=== PATIENT | female | born 1960 | race Caucasian/White ===

== ENCOUNTER 2020-09-24 10:00 | Inpatient (IN) | payer OTHER, SELFPAY ==
[2020-09-24] VITALS (16 sets, daily range): BP systolic 92–159; BP diastolic 43–85; PULSE 78–123; RESP 16–27; TEMP 36.8–38.1; O2SAT 93–100; BMI 19.6; BMI 19.5
--- NOTE | 2020-09-24 10:30 | CT_ITS ---
INDICATION: LLQ pain EXAMINATION: CT Abdomen And Pelvis W/O Contrast Injection TECHNIQUE: Helically acquired images were obtained of the abdomen and pelvis without the use of IV contrast. A radiation dose optimization technique was used for this scan. Oral contrast: None. COMPARISON: None FINDINGS: Evaluation of the solid organs and vascular structures is limited without intravenous contrast. Visualized lung bases: Unremarkable Liver: Multiple calcified granulomas. Gallbladder: Sludge within the gallbladder. Spleen: Multiple calcified granulomas. Pancreas: Unremarkable Adrenal Glands: Unremarkable Kidneys: Unremarkable Vasculature: Moderate aortoiliac atherosclerotic calcifications. GI Tract: Scattered colonic diverticula. There is a short segment of distal sigmoid colon demonstrating wall thickening and surrounding mesenteric fat stranding. There is also a small focus of intraperitoneal air adjacent to this inflamed portion of the colon (image 99, series 2). No focal fluid collection. Lymphadenopathy: None Peritoneum: No ascites. Bladder: Unremarkable Reproductive organs: Unremarkable Bones/Soft tissues: No suspicious osseous or soft tissue lesions CT/Abdomen/Pelvis without Cont IMPRESSION: Acute sigmoid diverticulitis with contained perforation. No focal fluid collection. Electronically Signed: Diego Valdes MD at 11:25 EDT Tel , Service support ,
[2020-09-24] MEDS: 0.9% Normal Saline 1,000 ML 1000 ML IV (10:47)
[2020-09-24] MEDS: Morphine 4 MG/ML Syringe IV ×2 (10:47→12:15)
[2020-09-24 10:48] LABS: Absolute Lymphocyte Count 0.84 X10^3/uL (0.83-4.51); Absolute Neutrophil Count 19.9 X10^3/uL (2.0-7.7); Basophil# 0.02 X10^3/uL; Basophil% 0.1 % (0-1); Eosinophil# 0.04 X10^3/uL; Eosinophils% 0.2 % (0-5); Hematocrit 39.9 % (37-47); Hemoglobin 13.1 g/dL (12.0-15.0); Lymphocyte # 0.84 X10^3/ul (0.83-4.51); Lymphocyte % 3.7 % (19-41); Mean Corp Hgb Conc 32.8 g/dL (32-36); Mean Corpuscular Hgb 29.2 pg (27.0-32.0); Mean Corpuscular Volume 89.1 fL (81-99); Mean Platelet Vol. 8.5 fl (6.2-12.0); Monocyte# 2.06 X10^3/uL; NRBC Flagged by Analyzer 0 % (0-5); Neutrophil # 19.87 X10^3/uL (2.7-7.7); Neutrophil % 86.4 % (47-70); POSITIVE DIFFERENTIAL YES; Platelet Count 381 K/mm3 (150-450); RBC Distribution Width CV 12.3 % (11.6-14.6); RBC Distribution Width SD 40.3 fl (35.1-43.9); Red Blood Count 4.48 M/mm3 (4.2-5.4)
[2020-09-24 10:49] LABS: Differential Indicated SCAN CRITERIA MET
[2020-09-24] MEDS: Ondansetron 4 MG/2 ML Vial IV (10:52)
[2020-09-24 10:58] LABS: Bacteria 0 SEEN /hpf (None Seen); Mucous, Urine 0 SEEN /hpf (<or=2+)
[2020-09-24 11:01] LABS: Color, Urine Yellow (Yellow); Glucose, Dipstick Normal (Normal); Leukocyte Esterase-Dipstick Negative /ul (Negative); Nitrite-Dipstick Negative (Negative); Occult Blood-Urine 250 /ul (Negative); Protein-Dipstick 100 mg/dl (Negative); Urine Bilirubin Dipstick Negative (Negative); Urine Clarity Clear (Clear); Urine Urobilinogen Normal (Normal)
[2020-09-24 11:01] LABS: ALB/GLOB Ratio 0.7 RATIO (0.9-2.4); AST(SGOT) 10 U/L (15-37); Alanine Aminotransfer ALT/SGPT 12 U/L (13-56); Albumin, Serum 3.2 g/dL (3.2-5.0); Alkaline Phosphatase 121 U/L (45-117); Anion Gap 8 (5-15); BUN 17 mg/dL (7-18); BUN/Creat Ratio 26.4 RATIO (10-20); Calcium,Total 9.4 mg/dL (8.5-10.1); Chloride 95 mmol/L (98-107); Creatinine, Serum 0.64 mg/dL (0.55-1.02); EST Glomerular Filtration Rate 99 mL/min (>60); Est Glom Filt Rate - Afr Amer 120 mL/min (>60); Globulin 4.3 g/dL (2.2-4.2); Glucose 134 mg/dL (74-106); Lipase 52 U/L (73-393); Potassium 3.2 mmol/L (3.5-5.1); Protein, Total 7.5 g/dL (6.4-8.2); Sodium Level 131 mmol/L (136-145)
[2020-09-24 11:07] LABS: Differential Comment SCANNED
[2020-09-24 11:13] LABS: Ketone-Dipstick 150 mg/dl (Negative)
[2020-09-24 11:14] LABS: Amorphous Sediment 1+; Red Blood Cells-Urine 10-25 SEEN /hpf (0-5); Squamous Epithelial Cells - UA 0-5 SEEN /hpf (5-10); White Blood Cells 0-5 SEEN /hpf (0-5)
[2020-09-24] MEDS: 0.9% Normal Saline 1,000 ML 999 ML IV (12:08)
[2020-09-24] MEDS: metroNIDAZOLE 500 MG/100 ML BAG 100 MG IV ×2 (12:08→22:13)
[2020-09-24 12:34] LABS: Lactic Acid 2.3 mmol/L (0.4-1.9)
--- NOTE | 2020-09-24 12:50 | ED.DCSUM_ITS ---
- ER Visit Summary Date of Service: 09/24/20 Chief Complaint: Abdominal pain History of Present Illness: The patient is a [address] Newton. She reports that she has left lower quadrant abdominal pain began 4 days ago. Is gradually gotten worse. It is a sharp, burning pain. Started worsening to 10 currently. Is worsened by movement and standing. Is relieved by nothing. Reports has been nausea and vomiting approximate 3 times a day. No blood in her emesis. She had loose stools, but no diarrhea. No blood in her stools or black tarry stools. Patient had dysuria. No frequency. She had subjective fever and chills. Physical Examination: Vitals: 98.3, 119/74, 123, 22, 90% on room air which is not hypoxic. General: Well-nourished and well-developed. Head: Normocephalic atraumatic. Neck: Supple, no lymphadenopathy. No JVD. Nontender. Cardiovascular: Tachycardic regular rhythm. No murmurs. Respiratory: No respiratory distress. Clear to auscultation bilaterally. Abdominal: Soft, moderate left lower quadrant tenderness to palpation, nondistended, normal bowel sounds. No guarding, rebound, or peritoneal signs. Rectal: Large perianal skin tag. Back: Nontender. Extremities: Nontender, no edema. Skin: Normal color, no rash. Neurologic: Alert and oriented ?3. Cranial nerves II through XII are intact. Normal strength and sensation. Psych: Normal affect. Test Results: CBC shows white count of 23.0 with 86 segs neutrophils and 4 l ymphocytes. Chem-7 shows a sodium 131, potassium 3.2, chloride 95, glucose 134. LFTs showed alk phos of 121, ALT of 12, AST of 10, lipase is 52. UA shows 10- 25 red blood cells. Lactic acid is 2.3. Clinical Impression(s) from Imaging Studies Abdomen/Pelvis CT 09/24/20 10:30 IMPRESSION: Acute sigmoid diverticulitis with contained perforation. No focal fluid collection. Electronically Signed: Diego Valdes MD at 11:25 EDT Tel , Service support , Emergency Department Course and Treatment: Patient was given morphine and Zofran IV. She was given 2 L of normal saline which is more than a 30 cc/kg bolus. She is allergic to penicillin. She was given Cipro and Flagyl IV. She is resting more comfortably. Treatment Plan: Patient was discussed with Dr. Sanchez. She also we discussed the hospitalist and admitted to the hospital for further evaluation and treatment. Disposition: Admitted in improved condition. Impression: 1. Sigmoid diverticulitis with microperforation. 2. Sepsis. 3. Perianal skin tag. This note was generated with Greasebookation software. It may contain incorrect words, spelling, and punctuation that were not noted in review of the chart prior to signing ED Disposition - Plan for ED Patient: Referrals: Lynda Palma MD [Primary Care Provider] -
--- NOTE | 2020-09-24 13:12 | PCM.HP.STD ---
History of Present Illness Date of Admission: 09/24/20 Chief Complaint: Abdominal pain and nausea The patient is a 60 year old F PMH as below who presents to the hospital with abdominal pain and nausea. She says that the pain is mostly in her left lower quadrant that started by 4 to 5 days ago. It has gradually gotten worse and that the symptoms are persistent but intermittent in intensity. She does have worsening pain with movement and does not get better with anything that she is aware of. In the ER she was found to have a white count of 23 though she is afebrile but she is tachycardic and was tachypneic but with those markers she is septic. Lactic acid is 2.3 making her severe sepsis and she had a CT scan of her abdomen pelvis which showed a contained perforation in her sigmoid colon consistent with sigmoid diverticulitis. This was discussed with surgery by the ED physician who felt that it was nonoperative case and should be admitted by medicine. Past Medical History Allergies Penicillins [PCN] Adverse Reaction (Verified 09/24/20 10:02) Hives Home Medications: Ambulatory Orders Medication Instructions Recorded NK 09/24/20 Surgical History: tonsillectomy Smoking Status: Current some day smoker Tobacco Use: Cigarettes Alcohol: None Drugs: None - *Family History Maternal History Items: Diabetes, Heart Disease Paternal History Items: Heart Disease, Hypertension Review of Systems Constitutional: Reports: Chills, Fever. Denies: Weight Change HEENT: Denies: Head Aches, Sinus Congestion, Sinus Drainage Cardiovascular: Denies: Chest Pain, Palpitations Respiratory: Denies: Cough, Shortness of breath at rest, Sputum production Gastrointestinal: Reports: Abdominal Pain. Denies: Nausea, Vomiting Genitourinary: Denies: Dysuria Musculoskeletal: Denies: Joint Pain, Joint Tenderness Skin: Denies: Rash, Wounds Neurological: Denies: Numbness, Tingling, Focal weakness Psychiatric: Denies: Anxiety, Depression Hematologic/ Lymphatic: Denies: Easy Bruising, Easy Bleeding VTE Information - Inpt Only VTE Present on Admission: No Patient Problems: Active and Suspected Problems Perforation of sigmoid colon due to diverticulitis (Acute) - Physical Exam Vitals/I&O's: Vital Signs Temp Pulse Resp BP Pulse Ox 98.3 F 110 H 18 148/84 H 93 09/24/20 10:02 09/24/20 11:47 09/24/20 11:47 09/24/20 11:47 09/24/20 11:47 Oxygen Delivery Method Room Air Weight: 118 lb Body Mass Index (BMI) 19.6 Intake and Output for Last 24 Hours 09/22/20 09/23/20 09/24/20 23:59 23:59 23:59 Intake Total 1000 / 1000 Balance 1000 / 1000 General: Alert, Oriented x3, Cooperative, No apparent distress HEENT: Atraumatic, PERRLA, EOMI, Normocephalic Oral: Dry Mucosa Neck: Supple, No JVD Lungs: Clear to auscultation, Normal air movement, No rhonchi, No wheeze, No rales, Tachypneic Cardiovascular: Regular Rhythm, Normal S1, Normal S2, No murmurs, Tachycardic Abdomen: Soft, Non-Distended, No Hepato-splenomegaly, Tender - Left lower quadrant Extremities: No edema, Capillary Refill Less than 3 Seconds Skin: No rashes, No breakdown Neurological: Neuro grossly intact, Sensory exam intact to light touch and pain Psych/Mental Status: Normal Affect, Appropriate Laboratory Results 09/24/20 10:33: WBC 23.0 H, RBC 4.48, Hgb 13.1, Hct 39.9, MCV 89.1, MCH 29.2, MCHC 32.8, RDW Std Deviation 40.3, RDW Coeff of Dion 12.3, Plt Count 381, MPV 8.5, Immature Gran % (Auto) 0.600, Neut % (Auto) 86.4 H, Lymph % (Auto) 3.7 L, [place] % (Auto) 9.0, Eos % (Auto) 0.2, Baso % (Auto) 0.1, Absolute Neuts (auto) 19.9 H, Absolute Lymphs (auto) 0.84, Nucleated RBC % 0, Differential Comment SCANNED, Diff Path Review October foll 09/24/20 10:33: Sodium 131 L, Potassium 3.2 L, Chloride 95 L, Carbon Dioxide 28.0, Anion Gap 8, BUN 17, Creatinine 0.64, Estim Creat Clear Calc 78.00, Est GFR (MDRD) Af Amer 120, Est GFR (MDRD) Non-Af 99, BUN/Creatinine Ratio 26.4 H, Glucose 134 H, Calcium 9.4, Total Bilirubin 0.50, AST 10 L, ALT 12 L, Alkaline Phosphatase 121 H, Total Protein 7.5, Albumin 3.2, Globulin 4.3 H, Albumin/Globulin Ratio 0.7 L, Lipase 52 L 09/24/20 10:50: Urine Color Yellow, Urine Clarity Clear, Urine pH 6.0, Ur Specific [place] 1.020, Urine Protein 100 H, Urine Glucose (UA) Normal, Urine Ketones 150 H, Urine Occult Blood 250 H, Urine Nitrite Negative, Urine Bilirubin Negative, Urine Urobilinogen Normal, Ur Leukocyte Esterase Negative, Urine RBC 10-25 SEEN, Urine WBC 0-5 SEEN, Ur Squamous Epith Cells 0-5 SEEN, Amorphous Sediment 1+, Urine Bacteria 0 SEEN, Urine Mucus 0 SEEN 09/24/20 11:50: Lactic Acid 2.3 H* Assessment/Plan All Active Problems Perforation of sigmoid colon due to diverticulitis (Acute) 1. Severe sepsis secondary to acute sigmoid diverticulitis with contained microperforation -She received sepsis fluids in the ER and will be started on Cipro and Flagyl -We will make her n.p.o. and continue with IV fluids -As she is stable, there does not appear a need at this time to consult the gauger chief delivery -She states that she had an episode of diverticulitis when she was 17 years old and therefore since that time has modified her diet significantly -Surgery has been consulted to assist in management for possible surgical intervention if she worsens DVT: Lovenox Inpatient E&M: 25044 Init Hosp L3
[2020-09-24] MEDS: Ciprofloxacin 400 MG/200 ML BAG 200 MG IV ×2 (13:18→21:15)
--- NOTE | 2020-09-24 13:31 | ED.RN ---
report given to fausto omalley
--- NOTE | 2020-09-24 13:43 | CON.PCM_ITS ---
Problem List (1) Perforation of sigmoid colon due to diverticulitis Status: Acute Reason for Consult Date of Consultation: 09/24/20 History of Present Illness: The patient is a 60 year old F PMH as below who presents to the hospital with abdominal pain and nausea. She says that the pain is mostly in her left lower quadrant that started by 4 to 5 days ago. It has gradually gotten worse and that the symptoms are persistent but intermittent in intensity. She does have worsening pain with movement and does not get better with anything that she is aware of. In the ER she was found to have a white count of 23 though she is afebrile but she is tachycardic and was tachypneic but with those markers she is septic. Lactic acid is 2.3 making her severe sepsis and she had a CT scan of her abdomen pelvis which showed a contained perforation in her sigmoid colon consistent with sigmoid diverticulitis. This was discussed with surgery by the ED physician who felt that it was nonoperative case and should be admitted by medicine. Past Medical History Allergies Penicillins [PCN] Adverse Reaction (Verified 09/24/20 10:02) Hives Home Medications: Ambulatory Orders Medication Instructions Recorded NK 09/24/20 Surgical History: no surgical history Smoking Status: Current some day smoker Tobacco Use: Cigarettes - *Family History Maternal History Items: No pertinent history Review of Systems Respiratory: Denies: Cough, Hemoptysis, Shortness of breath at rest, Shortness of breath upon exertion, Wheezing Gastrointestinal: Reports: Abdominal Pain, Constipation Genitourinary: Denies: Dysuria, Frequency, Hematuria, Urgency Patient Problems: Active and Suspected Problems Perforation of sigmoid colon due to diverticulitis (Acute) - Physical Exam Vitals/I&O's: Vital Signs Temp Pulse Resp BP Pulse Ox 99.7 F H 100 20 H 146/82 H 97 09/24/20 13:13 09/24/20 13:13 09/24/20 13:13 09/24/20 13:13 09/24/20 13:13 Oxygen Delivery Method Room Air Weight: 118 lb Body Mass Index (BMI) 19.6 Intake and Output for Last 24 Hours 09/22/20 09/23/20 09/24/20 23:59 23:59 23:59 Intake Total 1100 / 1100 Balance 1100 / 1100 General: Alert, Oriented x3 Lungs: Clear to auscultation Cardiovascular: Regular rate, Regular Rhythm, No murmurs Abdomen: Tender - Tenderness is mostly in the suprapubic and left lower quadrant area rest of the abdomen is soft. She is noted to have a fairly large anal skin tag probably about 2 cm in greatest diameter. Laboratory Results 09/24/20 10:33: WBC 23.0 H, RBC 4.48, Hgb 13.1, Hct 39.9, MCV 89.1, MCH 29.2, MCHC 32.8, RDW Std Deviation 40.3, RDW Coeff of Dion 12.3, Plt Count 381, MPV 8.5, Immature Gran % (Auto) 0.600, Neut % (Auto) 86.4 H, Lymph % (Auto) 3.7 L, [place] % (Auto) 9.0, Eos % (Auto) 0.2, Baso % (Auto) 0.1, Absolute Neuts (auto) 19.9 H, Absolute Lymphs (auto) 0.84, Nucleated RBC % 0, Differential Comment SCANNED, Diff Path Review October foll 09/24/20 10:33: Sodium 131 L, Potassium 3.2 L, Chloride 95 L, Carbon Dioxide 28.0, Anion Gap 8, BUN 17, Creatinine 0.64, Estim Creat Clear Calc 78.00, Est GFR (MDRD) Af Amer 120, Est GFR (MDRD) Non-Af 99, BUN/Creatinine Ratio 26.4 H, Glucose 134 H, Calcium 9.4, Total Bilirubin 0.50, AST 10 L, ALT 12 L, Alkaline Phosphatase 121 H, Total Protein 7.5, Albumin 3.2, Globulin 4.3 H, Albumin/Globulin Ratio 0.7 L, Lipase 52 L 09/24/20 10:50: Urine Color Yellow, Urine Clarity Clear, Urine pH 6.0, Ur Spe cific [place] 1.020, Urine Protein 100 H, Urine Glucose (UA) Normal, Urine Ketones 150 H, Urine Occult Blood 250 H, Urine Nitrite Negative, Urine Bilirubin Negative, Urine Urobilinogen Normal, Ur Leukocyte Esterase Negative, Urine RBC 10-25 SEEN, Urine WBC 0-5 SEEN, Ur Squamous Epith Cells 0-5 SEEN, Amorphous Sediment 1+, Urine Bacteria 0 SEEN, Urine Mucus 0 SEEN 09/24/20 11:50: Lactic Acid 2.3 H* Assessment/Plan All Active Problems Perforation of sigmoid colon due to diverticulitis (Acute) Patient will be amended to the intensive care unit. She is currently getting IV antibiotics. She will remain n.p.o. Hopefully we will see some significant improvement within the next 24 hours. I have talked to her about possibly needing to have a surgery with removal of the sigmoid colon and possibly creating a end colostomy she is aware of this and has had diverticulitis as a teenager. She has never had a colonoscopy.
[2020-09-24] MEDS: Acetaminophen 325 MG Tablet 650 MG PO (14:51)
[2020-09-24] MEDS: 0.9% Normal Saline 1,000 ML 100 ML IV (15:19)
[2020-09-24 15:56] LABS: Reflex Lactate? Y
[2020-09-24 16:49] LABS: Lactic Acid 0.8 mmol/L (0.4-1.9)
[2020-09-24] MEDS: Potassium Chloride Oral Tablet 20 MEQ 40 MEQ PO (18:21)
[2020-09-24] MEDS: Morphine 2 MG/ML Syringe IV ×2 (18:24→22:13)
[2020-09-24] MEDS: 0.9% Saline Lock 10 ML Syringe IV ×2 (21:15→22:13)
[2020-09-25] VITALS (30 sets, daily range): BP systolic 89–157; BP diastolic 52–119; PULSE 76–110; RESP 13–24; TEMP 36.5–37.2; O2SAT 93–100; BMI 19.7
--- NOTE | 2020-09-25 | COLBX_PTH ---
PATIENT: BILLIE SAVAGE LOC: [facility] U#:[id number] AGE/SX: 60/F ROOM: [facility] RE09/24/[address]: Dr. Adi Yang MD : 1960 BED: 1 DIS: 10/01/2020 SPEC #: [id number] RECD: 09/25/20 11:34 STATUS: HAYLEE REDeyvi #: [id number] SINAN: 09/25/20 00:[address]: Alfonzo Sanchez DEPT: SURGICAL PATHOLOGY RECD BY: Cheyenne Noguera ENTERED: 09/25/20 12:01 SP TYPE: COLON BX OTHR DR: MD Dr. Beni Louise MD Dr. Prakash Chand, MD Tissues: A - Sigmoid colon biopsy B - Skin of anus Procedures: Frozen Section (charge) Frozen Section Add'l ([facility]) Surgery Specimen Level IV Surgery Specimen Level HEADER OPERATION: Laparoscopic sigmoid colectomy with end colostomy and excision PRE-OP DIAGNOSIS: Perforation of sigmoid colon due to diverticulitis TISSUE SUBMITTED: A - Sigmoid colon, frozen section, B - Anal skin tag FROZEN SECTION DIAGNOSIS A. 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 AM:rena 09/25/2020 Case has been reviewed in consultation with Dr. Sarah who concurs with the above diagnosis. IDC:SJ MICROSCOPIC DIAGNOSIS A. Sigmoid colon, colectomy: Invasive well, moderate and poorly differentiated adenocarcinoma with focal mucinous features. See cancer summary in the comment section. B. Anal skin tag: Consistent with condyloma. :rena 09/27/2020 COMMENT COLON CANCER SUMMARY Procedure: Sigmoidectomy Tumor site: Sigmoid colon Tumor size: Cannot be estimated. No gross lesion is identified. Macroscopic tumor perforation: Present Histologic type: Adenocarcinoma Histologic grade: Grade 1-3 (well, moderately and poorly differentiated) Tumor extension: Tumor invades visceral peritoneum Margins: One axial margin and circumferential resection margin are positive for invasive carcinoma. Treatment effect: No known presurgical therapy. Lymphvascular invasion: Not identified Perineural invasion: present Type of polyp in which invasive carcinoma arose: None identified Tumor deposits: Not identified Regional lymph nodes: Number of lymph nodes examined: 20 Number of lymph nodes involved: 3 Ancillary studies: Please refer to IHC ([id number]) for mismatch protein or microsatellite instability. Additional pathologic findings: Diverticulosis and diverticulitis PATHOLOGIC STAGE: pT4a pN1b Mx The above summary is in compliance with [employer] [place] [employer] (CAP) Cancer Protocols Checklist and [place] Joint Committee on Cancer (AJCC), Staging Manual, 8th Ed. The tumor appears to arise in the diverticulum. The largest focus of lymph node metastasis measures 0.3 cm in greatest dimension. Extranodal extension is not seen. Case has been reviewed in consultation with Dr. Beltran who concurs with the above diagnosis. IDC:AM MICROSCOPIC DESCRIPTION Slides are reviewed. GROSS DESCRIPTION A - Received fresh for frozen section consultation labeled with the patient's name is a specimen designated sigmoid colon. The specimen consists of a segment of colon measuring 10 cm in length and is surrounded by dense, fibrofatty tissue. One end contains a staple. An area of perforation is noted adjacent to the opposite end measuring 0.9 cm. Serosal surface surrounding the peroration show induration. Also present free in the container is a separate fragment of pink-rowan soft tissue measuring 1.5 x 1 x 0.5 cm. The serosal surface of the segment of bowel is inked in area of serosal induration. [employer] sections are submitted for frozen section consultation in two blocks, 1 - area of perforation, 2 - separately received piece of tissue. The gross reviewed with the surgeon in person. The mucosa is pink-rowan in color. No distinct mucosal mass lesions are identified. Serial sections also reveal several diverticula that appear to be ruptured in the area of perforation. Multiple non-ruptured diverticula are also noted. The attached fibrofatty tissue contains several nodules resembling lymph nodes. Additional account maintenance representative sections are submitted as follows: 3 - stapled mucosal margin, 4 - opposite margin, 5 & 6 - area of perforation, 7-9 - area of perforation and adjacent soft tissue, 10 & 11 - non-ruptured diverticula, 12 - one lymph node, bisected, 13-17 - multiple lymph nodes in each cassette. / AM:rena 09/26/2020 B - Received in fixative is one container labeled with the patient's name and designated anal skin tag. The specimen consists of a polypoid fragment of rowan tissue measuring 2 x 1.7 x 0.8 cm. The specimen is serially sectioned and totally submitted in one cassette. / AM:rena 09/26/2020 TC:0 CPT: 22384, 78201, 68917, 37813
--- NOTE | 2020-09-25 | IMM_PTH ---
PATIENT: BILLIE SAVAGE LOC: [facility] U#:[id number] AGE/SX: 60/F ROOM: [facility] RE09/24/[address]: Dr. Adi Yang MD : 1960 BED: 1 DIS: 10/01/2020 SPEC #: [id number] RECD: 09/27/20 12:31 STATUS: SOUNeil REQ #: [id number] SINAN: 09/25/20 00:[address]: Alfonzo Sanchez DEPT: IMMUNOHISTOCHEMISTRY RECD BY: Cheyenne Noguera ENTERED: 09/27/20 12:32 SP TYPE: IMMUNO OTHR DR: MD Dr. Alfonzo Louise MD Dr. Nicholas F Kotsonis, MD Dr. Prakash Chand, MD Tyra Schlabach, TOE CLOSING MACHINE TENDER-C Tissues: A - Sigmoid colon biopsy Procedures: P53 (initial) MSH2 (add) MLH-1 (add) MSH6 (add) Anti-PMS2 (add) BARNHART-2 (add) KI-67 (add) HER-2-STEPHON (initial) Comments: @ Ordering doctor for HER2 edited from to @ by TAHIR at 09/27/20 1232 @ Ordering doctor for P53 edited from to @ by TAHIR at 09/27/20 1232 @ Ordering doctor for MSH2. edited from to @ by TAHIR at 09/27/20 1232 @ Ordering doctor for MLH1. edited from to DR.DPEABO Ernst by TAHIR at 09/27/20 1232 @ Ordering doctor for MSH6. edited from to @ by TAHIR at 09/27/20 1232 @ Ordering doctor for PMS2. edited from to DR.DPEABO Ernst by TAHIR at 09/27/20 1232 @ Ordering doctor for BARNHART-2. edited from to DR.DPEABO Ernst by TAHIR at 09/27/20 123 @ Ordering doctor for KI67. edited from to DR.DPEABO Ernst by TAHIR at 09/27/20 1232 @ Submitting doctor edited from to DR.DPEABO Ernst by RGOOD at 09/27/20 1232 PHYSICIAN & [place] [id number] SPECIMEN INFORMATION: Tissue Source: A - Sigmoid colon Clinical Info: Perforation of sigmoid colon due to diverticulitis Specimen Number: [id number] CPT code: 51234, 90624 x7 METHODOLOGY: Deparaffinized sections of prefer/formalin-fixed tissue or PAP/DQ stained slides are incubated with monoclonal/polyclonal antibodies/oligonucleotide probes. Localization is made via biotin free immunoperoxidase method. Appropriate controls are performed and reacted as expected. Results on target cell population are indicated in the following table: RESULTS: ANTIBODY / CLONE RESULT Block A5 Ki-67 (30-9) positive, high P53 (DO-7) positive BARNHART-2 (SP21) positive MLH-1 (M1) positive MSH2 (25D12) positive MSH6 (44) positive PMS2 (BIQ1123) positive Her-2neu (CB11) negative (0) These tests were developed and their performance characteristics determined by [facility]. They may not have been cleared or approved by the U.S. Food and Drug Administration. The FDA has determined that such clearance or approval is not necessary. The above immunohistochemical/dualISH markers are ordered and reviewed by the Pathologist. INTERPRETATION: A. Sigmoid colon, biopsy: Invasive adenocarcinoma. Result of Microsatellite Instability Study: Negative (no loss of mismatch protein; no microsatellite instability detected). SJ:rena 09/28/2020
[2020-09-25] MEDS: 0.9% Normal Saline 1,000 ML 100 ML IV ×4 (00:15→23:16)
[2020-09-25] MEDS: 0.9% Saline Lock 10 ML Syringe IV ×3 (02:33→06:13)
[2020-09-25] MEDS: Morphine 2 MG/ML Syringe IV ×2 (02:33→06:13)
[2020-09-25 03:50] LABS: Absolute Lymphocyte Count 1.29 X10^3/uL (0.83-4.51); Absolute Neutrophil Count 13.3 X10^3/uL (2.0-7.7); Basophil# 0.03 X10^3/uL; Basophil% 0.2 % (0-1); Differential Indicated SCAN CRITERIA MET; Eosinophil# 0.03 X10^3/uL; Eosinophils% 0.2 % (0-5); Hematocrit 29.9 % (37-47); Hemoglobin 9.7 g/dL (12.0-15.0); Lymphocyte # 1.29 X10^3/ul (0.83-4.51); Lymphocyte % 7.8 % (19-41); Mean Corp Hgb Conc 32.4 g/dL (32-36); Mean Corpuscular Hgb 30.1 pg (27.0-32.0); Mean Corpuscular Volume 92.9 fL (81-99); Mean Platelet Vol. 8.8 fl (6.2-12.0); Monocyte# 1.74 X10^3/uL; Monocyte% 10.6 % (0-10); NRBC Flagged by Analyzer 0 % (0-5); Neutrophil # 13.28 X10^3/uL (2.7-7.7); Neutrophil % 80.7 % (47-70); POSITIVE DIFFERENTIAL YES; Platelet Count 294 K/mm3 (150-450); RBC Distribution Width CV 12.7 % (11.6-14.6); RBC Distribution Width SD 43.4 fl (35.1-43.9); Red Blood Count 3.22 M/mm3 (4.2-5.4); White Blood Count 16.5 K/mm3 (4.4-11.0)
[2020-09-25 04:43] LABS: Anion Gap 7 (5-15); BUN 13 mg/dL (7-18); BUN/Creat Ratio 31.4 RATIO (10-20); Calcium,Total 8.2 mg/dL (8.5-10.1); Chloride 109 mmol/L (98-107); Creatinine, Serum 0.41 mg/dL (0.55-1.02); EST Glomerular Filtration Rate 166 mL/min (>60); Est Glom Filt Rate - Afr Amer 200 mL/min (>60); Estimated Creatinine Clearance 125.34 ml/min; Glucose 95 mg/dL (74-106); Potassium 3.8 mmol/L (3.5-5.1); Sodium Level 139 mmol/L (136-145)
--- NOTE | 2020-09-25 05:11 | RAD_ITS ---
HISTORY: abdominal pain EXAM: KUB COMPARISON: CT scan of the abdomen and pelvis from yesterday morning FINDINGS: # of images incl. paperwork: 1 The contained perforation within the pelvis from the acute diverticulitis is not identified on the x-ray No free air is perceived. No dilated or loops of bowel are seen. There is no mass or suspicious calcification. No evidence of obstruction. RAD/Abdomen Single View (Portable) IMPRESSION: No acute disease perceived. at 0623 Reported and signed by: Rancho Grider MD Electronically Signed: Rancho Grider MD at 6:22 EDT Tel , Service support ,
[2020-09-25] MEDS: metroNIDAZOLE 500 MG/100 ML BAG 100 MG IV ×3 (05:17→22:16)
--- NOTE | 2020-09-25 05:20 | PN_ITS ---
Progress Note Patient with acute diverticulitis and with contained perforation. Nurse report that patient with increased abdominal pain. Hemoglobin has dropped from 13.1- 9.7 Patient was examined at bedside. Patient complains of abdominal pain that has worsened. Patient is still hypotensive. Patient is not tachycardic Patient alert and oriented x3 abdomen very tender to touch; nondistended. Type and screen for 2 units of blood without transfusion. Trend H&H Get stat KUB. Discussed with general surgeon. STROKE Vital Signs/Narrative: Vital Signs Temp Pulse Resp BP Pulse Ox 09/25/20 04:00 98.8 F 76 20 H 123/58 H 98 09/25/20 03:00 82 19 H 133/69 H 100 09/25/20 02:00 76 17 119/57 L 100
--- NOTE | 2020-09-25 06:48 | PN.SURG_ITS ---
Patient Problems: Active and Suspected Problems Perforation of sigmoid colon due to diverticulitis (Acute) Subjective: Patient states that she feels significantly worse today. It hurts just for her to move in bed. Objective: More tender today with some voluntary guarding she has clear peritoneal signs on the left side. - Physical Exam Vitals/I&O's: Vital Signs Temp Pulse Resp BP Pulse Ox 98.8 F 110 H 21 H 121/65 H 94 09/25/20 04:00 09/25/20 06:00 09/25/20 06:00 09/25/20 06:00 09/25/20 06:00 Oxygen Flow Rate (L/min) 2 Oxygen Delivery Method Nasal Cannula Weight: 122 lb 9.232 oz Body Mass Index (BMI) 19.5 Intake and Output for Last 24 Hours 09/23/20 09/24/20 09/25/20 23:59 23:59 23:59 Intake Total 2660 / 2660 993.33 / 993.33 Output Total 700 / 700 0 / 0 Balance 1959 / 1959 993.33 / 993.33 Laboratory Results 09/24/20 10:33: WBC 23.0 H, RBC 4.48, Hgb 13.1, Hct 39.9, MCV 89.1, MCH 29.2, MCHC 32.8, RDW Std Deviation 40.3, RDW Coeff of Dion 12.3, Plt Count 381, MPV 8.5, Immature Gran % (Auto) 0.600, Neut % (Auto) 86.4 H, Lymph % (Auto) 3.7 L, Sharp % (Auto) 9.0, Eos % (Auto) 0.2, Baso % (Auto) 0.1, Absolute Neuts (auto) 19.9 H, Absolute Lymphs (auto) 0.84, Nucleated RBC % 0, Differential Comment SCANNED, Diff Path Review October09/24/20 10:33: Sodium 131 L, Potassium 3.2 L, Chloride 95 L, Carbon Dioxide 28.0, Anion Gap 8, BUN 17, Creatinine 0.64, Estim Creat Clear Calc 78.00, Est GFR (MDRD) Af Amer 120, Est GFR (MDRD) Non-Af 99, BUN/Creatinine Ratio 26.4 H, Glucose 134 H, Calcium 9.4, Total Bilirubin 0.50, AST 10 L, ALT 12 L, Alkaline Phosphatase 121 H, Total Protein 7.5, Albumin 3.2, Globulin 4.3 H, Albumin/Globulin Ratio 0.7 L, Lipase 52 L 09/24/20 10:50: Urine Color Yellow, Urine Clarity Clear, Urine pH 6.0, Ur Specific Homer 1.020, Urine Protein 100 H, Urine Glucose (UA) Normal, Urine Ketones 150 H, Urine Occult Blood 250 H, Urine Nitrite Negative, Urine Bilirubin Negative, Urine Urobilinogen Normal, Ur Leukocyte Esterase Negative, Urine RBC 10-25 SEEN, Urine WBC 0-5 SEEN, Ur Squamous Epith Cells 0-5 SEEN, Amorphous Sediment 1+, Urine Bacteria 0 SEEN, Urine Mucus 0 SEEN 09/24/20 11:50: Lactic Acid 2.3 H* 09/24/20 16:15: Lactic Acid 0.8 09/25/20 03:40: WBC 16.5 H, RBC 3.22 L, Hgb 9.7 L, Hct 29.9 L, MCV 92.9, MCH 30.1, MCHC 32.4, RDW Std Deviation 43.4, RDW Coeff of Dion 12.7, Plt Count 294, MPV 8.8, Immature Gran % (Auto) 0.500, Neut % (Auto) 80.7 H, Lymph % (Auto) 7.8 L, Sharp % (Auto) 10.6 H, Eos % (Auto) 0.2, Baso % (Auto) 0.2, Absolute Neuts (auto) 13.3 H, Absolute Lymphs (auto) 1.29, Nucleated RBC % 0, Diff Path Review October09/25/20 03:40: Sodium 139, Potassium 3.8, Chloride 109 H, Carbon Dioxide 23.0, Anion Gap 7, BUN 13, Creatinine 0.41 L, Estim Creat Clear Calc 125.34, Est GFR (MDRD) Af Amer 200, Est GFR (MDRD) Non-Af 166, BUN/Creatinine Ratio 31.4 H, Glucose 95, Calcium 8.2 L 09/25/20 05:10: Blood Type O POSITIVE, Antibody Screen NEGATIVE, Crossmatch See Detail Current Medications Acetaminophen (Acetaminophen 325 Mg Tablet) 650 mg PO Q6H PRN PRN PRN Reason: Pain Score 1-10/Temp > 100.7 F Last Admin: 09/24/20 14:51 Dose: 650 mg Documented by: Enoxaparin Sodium (Enoxaparin 40 Mg/0.4 Ml Syringe) 40 mg SC DAILY [facility] Sodium Chloride () 1,000 mls @ 100 mls/hr IV .Q10H [facility] Last Admin: 09/25/20 00:15 Dose: 100 mls/hr Documented by: Ciprofloxacin (Cipro) 400 mg in 200 mls @ 200 mls/hr IV Q12 [facility] Last Infusion: 09/24/20 22:16 Dose: Infused Documented by: Metronidazole (Flagyl) 500 mg in 100 mls @ 100 mls/hr IV Q8 [facility] Last Infusion: 09/25/20 06:24 Dose: Infused Documented by: Sodium Chloride () 250 mls @ 15 mls/hr IV .[id number] PRN PRN Reason: Saline Flush Sodium Chloride () 250 mls @ 15 mls/hr IV .[id number] PRN PRN Reason: Additional IVPB Infusion Morphine Sulfate (Morphine 2 Mg/Ml Syringe) 2 mg IV Q3H PRN PRN PRN Reason: Pain Score 6-10 Last Admin: 09/25/20 06:13 Dose: 2 mg Documented by: Ondansetron HCl (Ondansetron 4 Mg/2 Ml Vial) 4 mg IV Q8H PRN PRN PRN Reason: NAUSEA/VOMITING Sodium Chloride (0.9% Saline Lock 10 Ml Syringe) 10 - 40 ml IV UD PRN PRN Reason: SALINE FLUSH Last Admin: 09/25/20 06:13 Dose: 10 ml Documented by: Medical Necessity - Tobacco Use Smoking Status: Current some day smoker Tobacco Use: Cigarettes Assessment/Plan All Active Problems Perforation of sigmoid colon due to diverticulitis (Acute) At this point I do not think we have any choice but to take her to surgery. It would be highly unlikely that I am going to be able to do a primary anastomosis when I look at the CAT scan. I have discussed with her that probably the most likely surgery that I am going to be able to do is a sigmoid colectomy and end colostomy. Risk benefits of this procedure were reviewed with her in great detail and she is willing to proceed.
--- NOTE | 2020-09-25 07:01 | EKG12_ITS ---
Test Reason : PRE-OP Blood Pressure : / mmHG Vent. Rate : 087 BPM Atrial Rate : 087 BPM P-R Int : 148 ms QRS Dur : 070 ms QT Int : 364 ms P-R-T Axes : 070 028 009 degrees QTc Int : 438 ms Normal sinus rhythm Normal ECG Confirmed by HILDA KYLE, VIIVANA ([id number]), continuity editor AMBROSE BACK ([id number]) on 09/27/2020 1:22:27 PM Referred By: CAMILLE Confirmed By:VIVIANA STEVENS MD
--- NOTE | 2020-09-25 08:21 | PN_ITS ---
Patient Problems: Active and Suspected Problems Perforation of sigmoid colon due to diverticulitis (Acute) Objective: Patient has worsening of her abdominal pain yesterday night and was examined by nighttime hospitalist. Patient denies any major abdominal surgery in the past. She has normal exercise capacity prior to abdominal pain, can climb 2 flights of stairs no limitation on walking. She states sometimes she is sniffs cigarettes of her but usually does not smoke. Physical exam General: Alert, Oriented x3, Cooperative HEENT: Atraumatic, PERRLA, EOMI, Normocephalic Oral: No Gingival or Mucosal Lesions/ Ulcerations Neck: Supple, No JVD, Negative Carotid Bruits Lungs: Air entry diminished in bilateral lung bases. No crepitation/rhonchi Cardiovascular: Regular rate, Regular Rhythm, Normal S1, Normal S2, No murmurs Abdomen: Soft, tenderness present predominantly in left lower quadrant with rebound tenderness. Mild guarding. Bowel sounds present : No renal angle tenderness. No suprapubic tenderness. Extremities: No edema, Capillary Refill Less than 3 Seconds Skin: No rashes, No breakdown Musculoskeletal: No Tenderness to Palpation of Joints or Extremities Neurological: Cranial nerves II-XII grossly intact, Deep Tendon Reflexes 2+/4 and Symmetrical, Neuro grossly intact Psych/Mental Status: Normal Affect, Appropriate. Vitals/I&O's: Vital Signs Temp Pulse Resp BP Pulse Ox 98.2 F 88 17 111/57 L 96 09/25/20 08:12 09/25/20 08:12 09/25/20 08:12 09/25/20 08:12 09/25/20 08:12 Oxygen Flow Rate (L/min) 2 Oxygen Delivery Method Room Air Weight: 122 lb 9.232 oz Body Mass Index (BMI) 19.7 Intake and Output for Last 24 Hours 09/23/20 09/24/20 09/25/20 23:59 23:59 23:59 Intake Total 2660 / 2660 993.33 / 993.33 Output Total 700 / 700 0 / 0 Balance 1959 / 1959 993.33 / 993.33 Laboratory Results 09/24/20 10:33: WBC 23.0 H, RBC 4.48, Hgb 13.1, Hct 39.9, MCV 89.1, MCH 29.2, MCHC 32.8, RDW Std Deviation 40.3, RDW Coeff of Dion 12.3, Plt Count 381, MPV 8.5, Immature Gran % (Auto) 0.600, Neut % (Auto) 86.4 H, Lymph % (Auto) 3.7 L, Norman % (Auto) 9.0, Eos % (Auto) 0.2, Baso % (Auto) 0.1, Absolute Neuts (auto) 19.9 H, Absolute Lymphs (auto) 0.84, Nucleated RBC % 0, Differential Comment SCANNED, Diff Path Review October foll 09/24/20 10:33: Sodium 131 L, Potassium 3.2 L, Chloride 95 L, Carbon Dioxide 28.0, Anion Gap 8, BUN 17, Creatinine 0.64, Estim Creat Clear Calc 78.00, Est GFR (MDRD) Af Amer 120, Est GFR (MDRD) Non-Af 99, BUN/Creatinine Ratio 26.4 H, Glucose 134 H, Calcium 9.4, Total Bilirubin 0.50, AST 10 L, ALT 12 L, Alkaline Phosphatase 121 H, Total Protein 7.5, Albumin 3.2, Globulin 4.3 H, Albumin/Globulin Ratio 0.7 L, Lipase 52 L 09/24/20 10:50: Urine Color Yellow, Urine Clarity Clear, Urine pH 6.0, Ur Specific Benge 1.020, Urine Protein 100 H, Urine Glucose (UA) Normal, Urine Ketones 150 H, Urine Occult Blood 250 H, Urine Nitrite Negative, Urine Bilirubin Negative, Urine Urobilinogen Normal, Ur Leukocyte Esterase Negative, Urine RBC 10-25 SEEN, Urine WBC 0-5 SEEN, Ur Squamous Epith Cells 0-5 SEEN, Amorphous Sediment 1+, Urine Bacteria 0 SEEN, Urine Mucus 0 SEEN 09/24/20 11:50: Lactic Acid 2.3 H* 09/24/20 16:15: Lactic Acid 0.8 09/25/20 03:40: WBC 16.5 H, RBC 3.22 L, Hgb 9.7 L, Hct 29.9 L, MCV 92.9, MCH 30.1, MCHC 32.4, RDW Std Deviation 43.4, RDW Coeff of Dion 12.7, Plt Count 294, MPV 8.8, Immature Gran % (Auto) 0.500, Neut % (Auto) 80.7 H, Lymph % (Auto) 7.8 L, Norman % (Auto) 10.6 H, Eos % (Auto) 0.2, Baso % (Auto) 0.2, Absolute Neuts (auto) 13.3 H, Absolute Lymphs (auto) 1.29, Nucleated RBC % 0, Diff Path Review October09/25/20 03:40: Sodium 139, Potassium 3.8, Chloride 109 H, Carbon Dioxide 23.0, Anion Gap 7, BUN 13, Creatinine 0.41 L, Estim Creat Clear Calc 125.34, Est GFR (MDRD) Af Amer 200, Est GFR (MDRD) Non-Af 166, BUN/Creatinine Ratio 31.4 H, Glucose 95, Calcium 8.2 L 09/25/20 05:10: Blood Type O POSITIVE, Antibody Screen NEGATIVE, Crossmatch See Detail 09/25/20 08:00: PT Pending, INR Pending, APTT Pending Current Medications Acetaminophen (Acetaminophen 325 Mg Tablet) 650 mg PO Q6H PRN PRN PRN Reason: Pain Score 1-10/Temp > 100.7 F Last Admin: 09/24/20 14:51 Dose: 650 mg Documented by: Enoxaparin Sodium (Enoxaparin 40 Mg/0.4 Ml Syringe) 40 mg SC DAILY [facility] Sodium Chloride () 1,000 mls @ 100 mls/hr IV .Q10H [facility] Last Admin: 09/25/20 00:15 Dose: 100 mls/hr Documented by: Ciprofloxacin (Cipro) 400 mg in 200 mls @ 200 mls/hr IV Q12 [facility] Last Infusion: 09/24/20 22:16 Dose: Infused Documented by: Metronidazole (Flagyl) 500 mg in 100 mls @ 100 mls/hr IV Q8 [facility] Last Infusion: 09/25/20 06:24 Dose: Infused Documented by: Sodium Chloride () 250 mls @ 15 mls/hr IV .[id number] PRN PRN Reason: Saline Flush Sodium Chloride () 250 mls @ 15 mls/hr IV .[id number] PRN PRN Reason: Additional IVPB Infusion Morphine Sulfate (Morphine 2 Mg/Ml Syringe) 2 mg IV Q3H PRN PRN PRN Reason: Pain Score 6-10 Last Admin: 09/25/20 06:13 Dose: 2 mg Documented by: Ondansetron HCl (Ondansetron 4 Mg/2 Ml Vial) 4 mg IV Q8H PRN PRN PRN Reason: NAUSEA/VOMITING Sodium Chloride (0.9% Saline Lock 10 Ml Syringe) 10 - 40 ml IV UD PRN PRN Reason: SALINE FLUSH Last Admin: 09/25/20 06:13 Dose: 10 ml Documented by: STROKE Vital Signs/Narrative: Vital Signs Temp Pulse Resp BP BP Pulse Ox 09/25/20 08:12 98.2 F 88 17 111/57 L 96 09/25/20 07:00 87 18 121/65 H 96 09/25/20 06:48 94 09/25/20 06:00 110 H 21 H 121/65 H 94 09/25/20 05:00 80 19 H 124/69 H 100 Medical Necessity - Tobacco Use Smoking Status: Current some day smoker Tobacco Use: Cigarettes Assessment/Plan All Active Problems Perforation of sigmoid colon due to diverticulitis (Acute) 1. Severe sepsis secondary to acute sigmoid diverticulitis with contained microperforation Mild fever 100.6 Fahrenheit about 3 PM on 09/24. On IV fluid. Cipro/Flagyl. Patient is going for surgery today. Discussed with Dr. Sanchez. Continue incentive spirometry. Patient has good preoperative functional capacity and is moderate risk for surgery. 2. Patient does not regularly follow with PCP probably last seen about 4 years ago. Mild protein calorie malnutrition. DVT: Lovenox Inpatient E&M: [id number] [facility] Hosp L3
[2020-09-25 08:36] LABS: International Normalized Ratio 1.3; Partial Thromboplast Time 23.8 Seconds (24.1-36.2); Prothrombin Time (Protime)PT. 15.7 SECONDS (11.7-14.9)
[2020-09-25] MEDS: Ciprofloxacin 400 MG/200 ML BAG 200 MG IV ×2 (09:23→22:16)
--- NOTE | 2020-09-25 09:30 | CASEMGMT ---
Patient is off unit and unable to complete assessment at this time.
--- NOTE | 2020-09-25 09:44 | NURSING ---
Was asked to shane abdomen for an end colostomy per Dr Sanchez. patient has a bowel perforation d/t diverticulitis. Pt is scheduled for a sigmoid colectomy with an end colostomy this am. abdomen is tender. patient was able to sit up in the bed and well as at the side of the bed to assess the contour of the abdomen. abdomen marked with a skin pen to the left lower abdomen. patient stated typically she wears skirts up above the umbilicus. made sure to shane area at least 3 fingerbreadths from the umbilicus. covered marking with an opsite. will continue ostomy teaching with patient post op. no further questions at this time.
--- NOTE | 2020-09-25 10:02 | CASEMGMT ---
Pt is off the floor for surgery. SW will speak w/pt when appropriate about self pay status and about completing LW/POA forms. SONAL Walsh
--- NOTE | 2020-09-25 10:59 | NURSING ---
0900: Report called to Brenda in PACU 0940: patient left unit to PACU
[2020-09-25] MEDS: BUPIVACAINE LIPOSOME/PF 20 ML VIAL OPERA.SITE (12:30)
[2020-09-25] MEDS: Bupivacaine 0.25% 30 ML Vial (12:30)
--- NOTE | 2020-09-25 12:54 | OP.PCM_ITS ---
Problem List (1) Perforation of sigmoid colon due to diverticulitis Status: Acute (2) Cancer of sigmoid colon metastatic to intra-abdominal lymph node Status: Acute Report of Operation Date of Procedure: 09/25/20 Pre-Operative Diagnosis: Perforated sigmoid diverticulitis Post-Operative Diagnosis: Perforated sigmoid colon cancer Surgery/Procedure Performed:: Sigmoid colectomy with end colostomy (Liz's procedure) Type of Anesthesia:: General Anesthesiologist: Gerald Reno Specimen's removed: Sigmoid colon Drains: 15 round Malcolm-Luke Estimated Blood Loss (mL): < 50 cc Fluids Replaced: 600 cc LR Description of Procedure: Patient was brought into the operating room. Placed in the supine position. Under excellent general endotracheal intubation legs were placed up in stirrups and a Dickerson catheter was placed. The abdomen and pelvis was then sterilely prepped and draped in the usual fashion. Local was injected supraumbilically and incision was made dissection was carried down to the fascia fascia was grasped a varies needle was placed inside the abdomen the abdomen was insufflated to 15 torr. A #5 trocar was placed. Right lower quadrant #5 trocar was placed under direct visualization and in between those 2 another #5 trocar was placed. I injected Exparel along the lateral and costal margins. I then placed the patient in headdown and rotated to the left I used the Enseal to mobilize the sigmoid colon as I was dissecting in between the mesentery I entered purulent material and I thought this was consistent with perforated sigmoid diverticulitis into the mesentery as it was described in the CAT scan. I made a determination that it was best that I not do any further dissection laparoscopically and so I made a midline incision and placed a wound protector in the patient. I put an 0 Vicryl suture into the uterus and clamped it so it was out of the way. I started to dissect the sigmoid colon free and came down to the sacrum in a pinpoint fashion and it was densely adherent here as trying to stay close to the colon. As I was dissecting all this free the sigmoid colon avulsed from the rectum. All of this tissue was extremely hard and extremely suspicious for malignancy. I found the soft part of the sigmoid colon adjacent to the descending colon transected this with a 75 linear stapler and then came down on the mesentery with the Enseal device. I sent the colon as well as some necrotic debris to pathology and frozen section came back consistent with colon cancer. I was left with a particular dilemma here. All of this hard tissue was densely adherent to all the tissue underneath it. And I knew that if I tried to dissect all this free I would most certainly get into her ureters and cause significant amount of bleeding. I made a determination that this was not in her best interest and therefore I irrigated out the pelvis I irrigated out her rectum with Betadine. The remaining tissue on the rectum with a hole was was extremely dense thick it would not hold any sutures and I did not try to even attempt to throw sutures in here for fear of grasping the ureters. I placed a 15 round Malcolm-Luke drain through my right lateral port. Sutured to the skin with 3-0 nylon placed the drain into the pelvis. I then created the colostomy in the left lower quadrant. Cut the skin with a 10 blade use electrocautery to come down to the external oblique fascia created a cruciate incision and then went through the posterior fascia with the cautery I dilated out this and brought the sigmoid/descending colon through. I made sure that the colon had no twist to it I had excellent blood supply to it. I removed all the trochars. I then got an accurate needle and sponge count. I used 2-0 Vicryl and sutured the remaining sigmoid colon descending colon to the lateral sidewall so that small intestine but not get around it. I closed the peritoneum with a 2-0 Vicryl I closed the fascia with #1 PDS. The cruciate incision I closed partially on the medial aspect with a #1 Vicryl I then matured the stoma with 3-0 Vicryl it had a nice telida appearance to it it had excellent blood supply. Stoma appliance was applied. Patient tolerated the procedure well. - Admit VTE Documentation VTE Present on Admission: No VTE Mechan Device Prophylaxis: SCD's VTE Pharm Prophylaxis ordered?: No Reason prophylaxis not ordered:: Treatment Not Indicated
[2020-09-25 14:28] LABS: Pathologist Review Reviewed
[2020-09-25 14:29] LABS: Pathologist Review Reviewed
--- NOTE | 2020-09-25 15:16 | NURSING ---
Patient arrived back from OR
[2020-09-25 18:21] LABS: Hematocrit 31.9 % (37-47); Hemoglobin 10.2 g/dL (12.0-15.0)
[2020-09-25] MEDS: oxyCODONE 5 MG Tablet PO (18:21)
[2020-09-25 22:44] LABS: Hematocrit 30.5 % (37-47); Hemoglobin 9.7 g/dL (12.0-15.0)
[2020-09-26] VITALS (20 sets, daily range): BP systolic 94–155; BP diastolic 56–85; PULSE 64–99; RESP 15–21; TEMP 36.4–37.1; O2SAT 93–100
[2020-09-26] MEDS: oxyCODONE 5 MG Tablet PO ×2 (02:04→12:54)
[2020-09-26] MEDS: metroNIDAZOLE 500 MG/100 ML BAG 100 MG IV ×3 (05:18→23:00)
--- NOTE | 2020-09-26 07:21 | PN_ITS ---
Patient Problems: Active and Suspected Problems Perforation of sigmoid colon due to diverticulitis (Acute) Cancer of sigmoid colon metastatic to intra-abdominal lymph node (Acute) Reason for Visit: Follow-up for abdominal pain which turned out to be most probably colon cancer Objective: Heart rate is normal. Map more than 65. Pulse ox normal on ambient room air Physical exam General: Alert, Oriented x3, Cooperative HEENT: Atraumatic, PERRLA, EOMI, Normocephalic Oral: No Gingival or Mucosal Lesions/ Ulcerations Neck: Supple, No JVD, Negative Carotid Bruits Lungs: Air entry diminished in bilateral lung bases. No crepitation/rhonchi Cardiovascular: Regular rate, Regular Rhythm, Normal S1, Normal S2, No murmurs Abdomen: Surgical dressing is dry. Left side colostomy with JT drain. Bowel sounds absent. No significant tenderness. : No renal angle tenderness. No suprapubic tenderness. Extremities: No edema, Capillary Refill Less than 3 Seconds Skin: No rashes, No breakdown Musculoskeletal: No Tenderness to Palpation of Joints or Extremities Neurological: Cranial nerves II-XII grossly intact, Deep Tendon Reflexes 2+/4 and Symmetrical, Neuro grossly intact Psych/Mental Status: Normal Affect, Appropriate. Vitals/I&O's: Vital Signs Temp Pulse Resp BP Pulse Ox 98.0 F 64 16 103/59 L 95 09/26/20 04:00 09/26/20 06:00 09/26/20 06:00 09/26/20 06:00 09/26/20 06:00 Oxygen Flow Rate (L/min) 2 Oxygen Delivery Method Room Air Weight: 133 lb 2.547 oz Body Mass Index (BMI) 19.7 Intake and Output for Last 24 Hours 09/24/20 09/25/20 09/26/20 23:59 23:59 23:59 Intake Total 2660 / 2660 4818.33 / 4818.33 823.33 / 823.33 Output Total 700 / 700 1065 / 1065 450 / 450 Balance 1960 / 1960 3753.33 / 3753.33 373.33 / 373.33 Microbiology Past 72 Hours 09/25/20 08:00 Mucosa - Nose SARS-CoV-2 Antigen (Rapid) - Final Laboratory Results 09/24/20 10:33: Diff Path Review Reviewed 09/25/20 03:40: Diff Path Review Reviewed 09/25/20 08:00: PT 15.7 H, INR 1.3, APTT 23.8 L 09/25/20 18:05: Hgb 10.2 L, Hct 31.9 L 09/25/20 22:25: Hgb 9.7 L, Hct 30.5 L Current Medications Acetaminophen (Acetaminophen 325 Mg Tablet) 650 mg PO Q6H PRN PRN PRN Reason: Pain Score 1-10/Temp > 100.7 F Last Admin: 09/24/20 14:51 Dose: 650 mg Documented by: Enoxaparin Sodium (Enoxaparin 40 Mg/0.4 Ml Syringe) 40 mg SC DAILY [facility] Last Admin: 09/25/20 15:42 Dose: Not Given Documented by: Hydromorphone HCl (Hydromorphone 0.5 Mg/0.5 Ml Syringe) 0.5 - 1 mg IV Q2H PRN PRN PRN Reason: PAIN 1-10 Sodium Chloride () 1,000 mls @ 100 mls/hr IV .Q10H [facility] Last Infusion: 09/26/20 06:18 Dose: 100 mls/hr Documented by: Ciprofloxacin (Cipro) 400 mg in 200 mls @ 200 mls/hr IV Q12 [facility] Last Infusion: 09/25/20 23:51 Dose: Infused Documented by: Metronidazole (Flagyl) 500 mg in 100 mls @ 100 mls/hr IV Q8 [facility] Last Infusion: 09/26/20 06:18 Dose: Infused Documented by: Sodium Chloride () 250 mls @ 15 mls/hr IV .[id number] PRN PRN Reason: Saline Flush Sodium Chloride () 250 mls @ 15 mls/hr IV .[id number] PRN PRN Reason: Additional IVPB Infusion Ondansetron HCl (Ondansetron 4 Mg/2 Ml Vial) 4 mg IV Q8H PRN PRN PRN Reason: NAUSEA/VOMITING Oxycodone HCl (Oxycodone 5 Mg Tablet) 5 - 10 mg PO Q4H PRN PRN PRN Reason: Pain Score 1-10 Last Admin: 09/26/20 02:04 Dose: 10 mg Documented by: Sodium Chloride (0.9% Saline Lock 10 Ml Syringe) 10 - 40 ml IV UD PRN PRN Reason: SALINE FLUSH Last Admin: 09/25/20 06:13 Dose: 10 ml Documented by: STROKE Vital Signs/Narrative: Vital Signs Temp Pulse Resp BP Pulse Ox 09/26/20 06:00 64 16 103/59 L 95 09/26/20 05:00 69 17 104/63 95 09/26/20 04:00 98.0 F 69 19 H 116/68 94 Medical Necessity - Tobacco Use Smoking Status: Current some day smoker Tobacco Use: Cigarettes Assessment/Plan All Active Problems Perforation of sigmoid colon due to diverticulitis (Acute) Cancer of sigmoid colon metastatic to intra-abdominal lymph node (Acute) 1. Severe sepsis secondary to perforated sigmoid colon cancer: Patient was taken to the surgery on 09/25 and had sigmoid colectomy with end colostomy, Bassem procedure. Discussed with surgeon Dr. Sanchez. There was purulent material consistent with perforated sigmoid he found hard mass admitted to the sacrum. Specimen was sent for biopsy. Continue IV Cipro and Flagyl. Patient heart rate and blood pressure maintained. No fever is 36 hours. Continue incentive spirometry. Intraoperative findings discussed with the patient and told her high probability of sigmoid colon cancer and will consult oncologist ONCE biopsy report is available. 2. Mild acute blood loss anemia from surgery: Patient hemoglobin dropped from 13.1-10.2/9.7. Did not need PRBC transfusion. 3. Patient does not regularly follow with PCP probably last seen about 4 years ago. Patient has social issues, no insurance. network architect manager and social security specialist are working on 4. Mild protein calorie malnutrition. DVT: Lovenox Total time of the visit including total time spent in counseling or coordination of care, (more than 50% of the total time, spent in obtaining medical information from nurses and other ancillary care providers,explaining to the patient about labs, imaging, diagnosis and management), discussion of the intraoperative findings and diagnosis to the patient, review of labs and imaging is 30 minutes. Patient is hemodynamically stable and transferred to the PCU. Inpatient E&M: [id number] [facility] Hosp L3
[2020-09-26] MEDS: Ciprofloxacin 400 MG/200 ML BAG 200 MG IV ×2 (09:23→23:00)
[2020-09-26] MEDS: Enoxaparin 40 MG/0.4 ML Syringe SC (09:23)
[2020-09-26] MEDS: 0.9% Normal Saline 1,000 ML 100 ML IV (09:25)
--- NOTE | 2020-09-26 11:18 | CASEMGMT ---
SW met w/pt in room in regard to prior level of care, completing LW/POA, and financial resources. SW did call our financial department and left a message asking them to follow up w/pt as well. PCP: Dr. Palma listed, though pt states she has not been to see her yet. Pt used to go to [facility] but has decided that the drive there is too far, so plans to change to Dr. Palma. Specialists: None Insurance: None. Pt has not had insurance for several years, and has paid the penalty in the past with Obamacare. Pharmacy: [facility] in [place] LNFL: Sister June, [place], son Avelino. Pt has another son in [place] but is no longer in touch with him. LW/POA: Pt just completed, named son Avelino as POA Living arrangements/Prior level of function: Pt lives in a 2 story house with a basement. Pt is fully independent, cooks, cleans, does finances, completes all ADLs. 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 DME/HHC/SNF: Pt uses no DME prior to this, no history of home health, no intermediate history. SW spoke w/pt initally about her new diagnosis, support given. Pt has stated that she does not want to have any treatment for the cancer, is more focused on quality than quantity of life. Pt declined speaking w/someone from our [facility]. SW asked pt about hospice, she states is not ready for this yet. SW spoke w/pt about finances, pt explains that they have not had insurance since her lost his job several years ago. They do have some savings but she tries to be careful with her money. Pt agreeable to complete Medicaid application, application completed and faxed to [facility]. SW also provided financial resources including information for food [employer], [employer], Lia Rios, [facility] assist, 211, and prescription assistance programs. Pt also wanted to complete LW/POA forms and organ donation form. SW assisted pt in completing these documents, organ donation form mailed to [employer]. SW gave pt originals and copies of LW/POA forms, copies on chart. SW also spoke w/pt about what she may need when she is ready to be discharged home. SW asked pt about applying for Passport services, pt declined. Pt may be agreeable to paying for home care for a couple of visits, and will pay for her colostomy supplies. SW let CM and wound care nurse know about this, they will follow up w/pt. Plan: home with and possible home care, colostomy supplies. SW remains available for any additional needs or services. SONAL Walsh
--- NOTE | 2020-09-26 11:39 | NURSING ---
wound photo: abdomen
--- NOTE | 2020-09-26 11:52 | NURSING ---
Stoma is beefy red and slightly edematous. minimal drainage noted in the appliance. small amount of serosanguineous drainage. no flatus noted at this time. Plan to change appliance with patient tomorrow. Pt tearful off and on discussing plan of no chemo or radiation. patient was encouraged by Dr Sanchez to at least discuss options with oncology and also encouraged pt to meet with Hospice/Palliative care. Pt states she will think about it. Pt stated I knew there was something wrong years ago. Pt never had a colonoscopy in the past. Pt to discuss with family. Pt voiced concerns about how she wants to be remembered by others. Pt states she has always tried to give back. Pt comforted. Pt very appreciative of care. Will continue to follow.
--- NOTE | 2020-09-26 11:58 | PCM.PN.SRG ---
Patient Problems: Active and Suspected Problems Perforation of sigmoid colon due to diverticulitis (Acute) Cancer of sigmoid colon metastatic to intra-abdominal lymph node (Acute) Subjective: Less pain than yesterday. No air out of the colostomy bag yet. Objective: Dressings clean and dry stoma is pink and viable - Physical Exam Vitals/I&O's: Vital Signs Temp Pulse Resp BP Pulse Ox 97.5 F L 93 21 H 129/71 H 100 09/26/20 08:00 09/26/20 11:00 09/26/20 11:00 09/26/20 11:00 09/26/20 11:00 Oxygen Flow Rate (L/min) 2 Oxygen Delivery Method Room Air Weight: 133 lb 2.547 oz Body Mass Index (BMI) 19.7 Intake and Output for Last 24 Hours 09/24/20 09/25/20 09/26/20 23:59 23:59 23:59 Intake Total 2660 / 2660 4818.33 / 4818.33 1335.00 / 1335.00 Output Total 700 / 700 1065 / 1065 450 / 450 Balance 1960 / 1960 3753.33 / 3753.33 885.00 / 885.00 Microbiology Past 72 Hours 09/25/20 08:00 Mucosa - Nose SARS-CoV-2 Antigen (Rapid) - Final Laboratory Results 09/24/20 10:33: Diff Path Review Reviewed 09/25/20 03:40: Diff Path Review Reviewed 09/25/20 18:05: Hgb 10.2 L, Hct 31.9 L 09/25/20 22:25: Hgb 9.7 L, Hct 30.5 L Current Medications Acetaminophen (Acetaminophen 325 Mg Tablet) 650 mg PO Q6H PRN PRN PRN Reason: Pain Score 1-10/Temp > 100.7 F Last Admin: 09/24/20 14:51 Dose: 650 mg Documented by: Enoxaparin Sodium (Enoxaparin 40 Mg/0.4 Ml Syringe) 40 mg SC DAILY MITA Last Admin: 09/26/20 09:23 Dose: 40 mg Documented by: Hydromorphone HCl (Hydromorphone 0.5 Mg/0.5 Ml Syringe) 0.5 - 1 mg IV Q2H PRN PRN PRN Reason: PAIN 1-10 Sodium Chloride () 1,000 mls @ 100 mls/hr IV .Q10H MITA Last Admin: 09/26/20 09:25 Dose: 100 mls/hr Documented by: Ciprofloxacin (Cipro) 400 mg in 200 mls @ 200 mls/hr IV Q12 MITA Last Infusion: 09/26/20 10:23 Dose: Infused Documented by: Metronidazole (Flagyl) 500 mg in 100 mls @ 100 mls/hr IV Q8 MITA Last Infusion: 09/26/20 06:18 Dose: Infused Documented by: Sodium Chloride () 250 mls @ 15 mls/hr IV .[id number] PRN PRN Reason: Saline Flush Sodium Chloride () 250 mls @ 15 mls/hr IV .[id number] PRN PRN Reason: Additional IVPB Infusion Ondansetron HCl (Ondansetron 4 Mg/2 Ml Vial) 4 mg IV Q8H PRN PRN PRN Reason: NAUSEA/VOMITING Oxycodone HCl (Oxycodone 5 Mg Tablet) 5 - 10 mg PO Q4H PRN PRN PRN Reason: Pain Score 1-10 Last Admin: 09/26/20 02:04 Dose: 10 mg Documented by: Sodium Chloride (0.9% Saline Lock 10 Ml Syringe) 10 - 40 ml IV UD PRN PRN Reason: SALINE FLUSH Last Admin: 09/25/20 06:13 Dose: 10 ml Documented by: Medical Necessity - Tobacco Use Smoking Status: Current some day smoker Tobacco Use: Cigarettes Assessment/Plan All Active Problems Perforation of sigmoid colon due to diverticulitis (Acute) Cancer of sigmoid colon metastatic to intra-abdominal lymph node (Acute) Postoperative day #1 Await GI function Had a discussion that she is probably needing to see oncology to discuss her options. And if she does not want to have anything done thinking about getting hospice palliative care involved would be appropriate.
--- NOTE | 2020-09-26 15:09 | CHAPLAIN ---
Type of Pastoral Visit _x__ Initial Visit ___ Follow-up Visit ___ On-call Visit ___ General Patient Visit ___ Spiritual Assessment ___ Family Conference ___ Bereavement ___ Rapid Response ___ Code Blue ___ Other (describe below) Pastoral Care Referral From _x__ Patient ___ Family ___ Nurse ___ Physician ___ Tunnel Worker ___ Rib Bender ___ Other (describe below) Sacrament/Intervention _x__ Active listening ___ Anointing ___ Yazdanism ___ Bereavement ___ Communion _x__ Lila exploration ___ _x__ Life review _x__ Prayer ___ Reconciliation ___ Sacrament of Sick _x__ Supportive presence ___ Wedding ___ Other (describe below) Pastoral Comments patient states she had bad news which was not a surprise, I knew and I'm ok with it but just feel bad about leaving my family; patient is very talkative and gives much life review; pt presents with a strong lila in God and an appreciation for her life; pt mostly concerned for her spouse; pt wanted to focus on her life and not on her illness at this time; pt welcomed spiritual care and prayer
--- NOTE | 2020-09-26 15:09 | NURSING ---
pt on telephone talking, tearful at times. privacy being maintained. will be back to check on pt. pt is requesting to talk face to face with her own dental assistant. will check with charge nurse.
--- NOTE | 2020-09-26 15:42 | NURSING ---
pt talkative- updated on current visiting policy and discussing options in which pt is able to speak with her electronic assembly as she states she does not want to change who can visit her. pt states she will facetime with her electronic assembly, states she has the means (her personal device) that can do that.
--- NOTE | 2020-09-26 15:42 | CASEMGMT ---
CAT spoke with Jessenia from the financial department, she tried to call pt in the room but she did not answer. She will try pt again tomorrow. SONAL Walsh
[2020-09-26] MEDS: Lactated Ringers 1,000 ML 75 ML IV (16:12)
[2020-09-26] MEDS: 0.9% Saline Lock 10 ML Syringe IV ×2 (16:15→18:09)
[2020-09-26] MEDS: HYDROmorphone 0.5 MG/0.5 ML SYRINGE IV ×2 (16:15→18:09)
[2020-09-26] MEDS: Ondansetron 4 MG/2 ML Vial IV (16:15)
--- NOTE | 2020-09-26 18:05 | NURSING ---
JT dressing saturated with serrous fluid- new DSD split gauze applied and secured with medipore tape
[2020-09-27] VITALS (10 sets, daily range): BP systolic 125–158; BP diastolic 63–88; PULSE 70–104; RESP 16–18; TEMP 36.7–37.2; O2SAT 95–96
[2020-09-27] MEDS: oxyCODONE 5 MG Tablet PO ×4 (00:03→22:40)
[2020-09-27] MEDS: metroNIDAZOLE 500 MG/100 ML BAG 100 MG IV ×3 (05:00→21:25)
[2020-09-27 06:43] LABS: Absolute Lymphocyte Count 1.77 X10^3/uL (0.83-4.51); Basophil# 0.01 X10^3/uL; Basophil% 0.1 % (0-1); Eosinophil# 0.03 X10^3/uL; Eosinophils% 0.2 % (0-5); Hematocrit 29.2 % (37-47); Hemoglobin 9.3 g/dL (12.0-15.0); Lymphocyte # 1.77 X10^3/ul (0.83-4.51); Lymphocyte % 14.7 % (19-41); Mean Corp Hgb Conc 31.8 g/dL (32-36); Mean Corpuscular Hgb 29.6 pg (27.0-32.0); Mean Platelet Vol. 8.8 fl (6.2-12.0); Monocyte# 1.22 X10^3/uL; Monocyte% 10.1 % (0-10); NRBC Flagged by Analyzer 0 % (0-5); Neutrophil # 8.99 X10^3/uL (2.7-7.7); Neutrophil % 74.4 % (47-70); Platelet Count 373 K/mm3 (150-450); RBC Distribution Width CV 13.6 % (11.6-14.6); Red Blood Count 3.14 M/mm3 (4.2-5.4); White Blood Count 12.1 K/mm3 (4.4-11.0)
[2020-09-27 07:07] LABS: ALB/GLOB Ratio 0.7 RATIO (0.9-2.4); AST(SGOT) 16 U/L (15-37); Alanine Aminotransfer ALT/SGPT 13 U/L (13-56); Albumin, Serum 2.3 g/dL (3.2-5.0); Alkaline Phosphatase 80 U/L (45-117); Anion Gap 6 (5-15); BUN 9 mg/dL (7-18); BUN/Creat Ratio 19.4 RATIO (10-20); Calcium,Total 7.9 mg/dL (8.5-10.1); Chloride 107 mmol/L (98-107); Creatinine, Serum 0.46 mg/dL (0.55-1.02); EST Glomerular Filtration Rate 145 mL/min (>60); Est Glom Filt Rate - Afr Amer 176 mL/min (>60); Estimated Creatinine Clearance 120.23 ml/min; Globulin 3.4 g/dL (2.2-4.2); Glucose 102 mg/dL (74-106); Protein, Total 5.7 g/dL (6.4-8.2); Sodium Level 140 mmol/L (136-145)
[2020-09-27] MEDS: Ciprofloxacin 400 MG/200 ML BAG 200 MG IV ×2 (09:54→22:40)
[2020-09-27] MEDS: Enoxaparin 40 MG/0.4 ML Syringe SC (09:56)
[2020-09-27] MEDS: Potassium Chloride 10mEq/100mL 10 MEQ/100 ML IV.SOLN. 100 MEQ IV BOLUS ×2 (11:10→12:15)
[2020-09-27] MEDS: Potassium Chloride Oral Tablet 20 MEQ 40 MEQ PO (11:10)
[2020-09-27 11:18] LABS: Phosphorus 1.6 mg/dL (2.5-4.9)
--- NOTE | 2020-09-27 13:09 | NURSING ---
In to do ostomy teaching with patient and sister. patient very talkative and had to keep refocusing patient on the ostomy teaching. removed the appliance. stoma is pink and moist. there is a small dusky area noted at the medial/distal portion of the stoma. peristomal skin is intact. stoma is edematous. cleansed the peristomal skin with warm water. pat dry. applied a new 2 piece flat Farrah appliance. reviewed with patient and sister how to cut appliance to size and also discussed how the stoma can change size. the current pattern given to the patient. educated patient and sister how to snap the pouch onto the flange. pt denies questions at this time. will educate more on empyting the appliance once patient starts passing stool.
--- NOTE | 2020-09-27 16:00 | NURSING ---
Pt given approximate pricing of ostomy supplies since patient does not have insurance. Patient is able to purchase [place] flange #[id number] (box of 5) for approx $32 on [employer], $22 on [employer], and $21.44 from [employer]. Pt can get the [place] pouch #[id number] (box of 10) on [employer] for approx $30 and $21.79 from [employer]. Pt can also get the stoma paste for approx $9.40/tube. Pt was also set up with [employer] through [email or web address] who will send patient free samples.
--- NOTE | 2020-09-27 16:25 | PCM.PN.SRG ---
Patient Problems: Active and Suspected Problems Perforation of sigmoid colon due to diverticulitis (Acute) Cancer of sigmoid colon metastatic to intra-abdominal lymph node (Acute) Subjective: Patient sitting up into a chair today. No output from stoma as of yet. Objective: Abdomen is soft stoma is pink and viable - Physical Exam Vitals/I&O's: Vital Signs Temp Pulse Resp BP Pulse Ox 98.7 F 86 18 136/63 H 96 09/27/20 15:40 09/27/20 15:40 09/27/20 15:40 09/27/20 15:40 09/27/20 15:40 Oxygen Flow Rate (L/min) 2 Oxygen Delivery Method Room Air Weight: 138 lb 14.259 oz Body Mass Index (BMI) 19.7 Intake and Output for Last 24 Hours 09/25/20 09/26/20 09/27/20 23:59 23:59 23:59 Intake Total 4818.33 / 4818.33 2643.75 / 2643.75 2696.25 / 2696.25 Output Total 1065 / 1065 870 / 870 30 / 30 Balance 3753.33 / 3753.33 1773.75 / 1773.75 2666.25 / 2666.25 Microbiology Past 72 Hours 09/25/20 08:00 Mucosa - Nose SARS-CoV-2 Antigen (Rapid) - Final Laboratory Results 09/27/20 06:20: WBC 12.1 H, RBC 3.14 L, Hgb 9.3 L, Hct 29.2 L, MCV 93.0, MCH 29.6, MCHC 31.8 L, RDW Std Deviation 46.0 H, RDW Coeff of Dion 13.6, Plt Count 373, MPV 8.8, Immature Gran % (Auto) 0.500, Neut % (Auto) 74.4 H, Lymph % (Auto) 14.7 L, Wilkes % (Auto) 10.1 H, Eos % (Auto) 0.2, Baso % (Auto) 0.1, Absolute Neuts (auto) 9.0 H, Absolute Lymphs (auto) 1.77, Nucleated RBC % 0 09/27/20 06:20: Sodium 140, Potassium 3.0 L, Chloride 107, Carbon Dioxide 27.0, Anion Gap 6, BUN 9, Creatinine 0.46 L, Estim Creat Clear Calc 120.23, Est GFR (MDRD) Af Amer 176, Est GFR (MDRD) Non-Af 145, BUN/Creatinine Ratio 19.4, Glucose 102, Calcium 7.9 L, Magnesium 2.0, Total Bilirubin 0.30, AST 16, ALT 13, Alkaline Phosphatase 80, Total Protein 5.7 L, Albumin 2.3 L, Globulin 3.4, Albumin/Globulin Ratio 0.7 L 09/27/20 06:20: Phosphorus 1.6 L Current Medications Acetaminophen (Acetaminophen 325 Mg Tablet) 650 mg PO Q6H PRN PRN PRN Reason: Pain Score 1-10/Temp > 100.7 F Last Admin: 09/24/20 14:51 Dose: 650 mg Documented by: Enoxaparin Sodium (Enoxaparin 40 Mg/0.4 Ml Syringe) 40 mg SC DAILY REPLACED BY [facility] Last Admin: 09/27/20 09:56 Dose: 40 mg Documented by: Hydromorphone HCl (Hydromorphone 0.5 Mg/0.5 Ml Syringe) 0.5 - 1 mg IV Q2H PRN PRN PRN Reason: PAIN 1-10 Last Admin: 09/26/20 18:09 Dose: 1 mg Documented by: Ciprofloxacin (Cipro) 400 mg in 200 mls @ 200 mls/hr IV Q12 REPLACED BY [facility] Last Infusion: 09/27/20 11:00 Dose: Infused Documented by: Metronidazole (Flagyl) 500 mg in 100 mls @ 100 mls/hr IV Q8 REPLACED BY [facility] Last Infusion: 09/27/20 14:20 Dose: Infused Documented by: Sodium Chloride () 250 mls @ 15 mls/hr IV .[id number] PRN PRN Reason: Saline Flush Sodium Chloride () 250 mls @ 15 mls/hr IV .[id number] PRN PRN Reason: Additional IVPB Infusion Ondansetron HCl (Ondansetron 4 Mg/2 Ml Vial) 4 mg IV Q8H PRN PRN PRN Reason: NAUSEA/VOMITING Last Admin: 09/26/20 16:15 Dose: 4 mg Documented by: Oxycodone HCl (Oxycodone 5 Mg Tablet) 5 - 10 mg PO Q4H PRN PRN PRN Reason: Pain Score 1-10 Last Admin: 09/27/20 11:10 Dose: 10 mg Documented by: Potassium Chloride (Potassium Chloride Oral Tablet 20 Meq) 40 meq PO DAILYCM MITA Last Admin: 09/27/20 11:10 Dose: 40 meq Documented by: Sodium Chloride (0.9% Saline Lock 10 Ml Syringe) 10 - 40 ml IV UD PRN PRN Reason: SALINE FLUSH Last Admin: 09/26/20 18:09 Dose: 10 ml Documented by: Medical Necessity - Tobacco Use Smoking Status: Current some day smoker Tobacco Use: Cigarettes Assessment/Plan All Active Problems Perforation of sigmoid colon due to diverticulitis (Acute) Cancer of sigmoid colon metastatic to intra-abdominal lymph node (Acute) Postoperative day #2 Await GI function Oncology is here to see the patient this afternoon. We will work on director social to try to get Medicaid involved.
--- NOTE | 2020-09-27 17:26 | CON.PCM_ITS ---
Subjective Date of Service:: 09/27/20 Chief Complaint: Suspected malignancy History of Present Illness: Ms. Celina Bowden is a 60 year old woman with no known past medical history who presented to [facility] emergency department on 09/20/2020 with complaints of left lower quadrant pain. On admission white blood cell count 23, hemoglobin 13.1 and platelets 381, lactic acid 2.3 alk phos slightly elevated no transaminitis. CT of the abdomen and pelvis with contrast demonstra jeramie sigmoid diverticulitis with contained perforation. Patient was subsequently admitted for medical management of this and sepsis to the ICU. 09/25/2020 abdominal pain increased and she demonstrated peritoneal signs on the left side. As a result she underwent sigmoid colectomy with end ostomy (Bassem procedure) per Dr. Sanchez. Op note reviewed indicates presence of hard firm mass at the distal rectum and per a verbal from pathology a frozen section of bowel was positive for colon cancer Complete path report is still pending. Upon entering the room the patient is sitting upright in the chair talking with sister. History is difficult to ascertain, patient verbalizes that she has intentionally stayed away from doctors. Reports that in 1993 she was told she had stage IV [employer] malignancy (cannot recall site of primary). States she has not seen a [employer] since. Also reports July 2019 she experienced extreme constipation almost immediately followed by frequent stools. Estimates in the last year averages 10-20 small bowel movements per day and of late have been bloody, mucus-like and uncomfortable to pass. Further indicates she has to change positions when sitting frequently due to sacral discomfort. Smokes approximately a fourth to half a pack of cigarettes per week. Has never underwent colonoscopy. Family history is positive for 2 maternal aunts with breast cancer. Past Medical/Surgical History: Past Medical History - Most Recent Inpatient Visit Past Medical History Start: 09/24/20 14:32 Text: Status: Complete Freq: ONCE Protocol: Document 09/24/20 14:40 EY (Rec: 09/24/20 14:42 EY [id number]) BMI Required to complete PMH What is Patient's BMI 19.6 Past Medical History Unable History Recalled No Query Text:Pt Unable/Family Not Present Neurologic Medical History Hx Stroke/TIA No Hx Dementia/Alzheimer's No Hx Parkinson's Disease No Hx Seizures No Hx Multiple Sclerosis No Hx Migraines No Cardiac Medical History VTE Present on Admission No Hx of Deep Vein Thrombosis/VTE/PE No Hx Hypertension No Hx Chest Pain/Angina No Hx Heart Attack No Hx Cardiac Surgery/Stents/Etc. No Hx Heart Failure No Hx Pacemaker/AICD No Hx Irregular Heartbeat and/or Afib No Hx Anticoagulant Therapy No Query Text:(Coumadin, Aspirin, Plavix, Xarelto, etc.) Hx Pain in Legs when Walking/Leg Cramps No Respiratory Medical History Hx COPD No Hx Emphysema No Hx Smoking Yes Smoking Status Current some day smoker Tobacco Use Cigarettes Hx Tobacco Use in last 12 months Yes Sent to [facility] Yes Hx Sleep Apnea No Do you snore loudly (louder than talking No or can be heard through closed doors)? Do you often feel tired/ fatigued/ No sleepy during daytime? Has anyone observed you stop breathing No during sleep? STOP Results Negative GI Medical History Hx Ulcer No Hx Hepatitis No Hx Cirrhosis No Hx GI Bleed No Hx Unplanned Weight Loss No Genitourinary Medical History Indwelling Catheter in Place on Arrival/ No Admission Hx Renal Disease No Hx Dialysis No Musculoskeletal History Hx Arthritis No Hx Rheumatoid Arthritis No Endocrine Medical History Hx Diabetes No Hx Thyroid Disease No Hematologic Medical History Hx of Blood Transfusion Yes Hx of Transfusion in last 3 Months No Ever experience any problems with No transfusion(s)? Hx of Preganancy in last 3 Months No Nurse Filling Out Transfusion & EYOUNG Questions: Date: 09/24/20 Time: 14:41 Psycho/Social Medical History Hx Depression No Hx Anxiety No Hx Behavior Disorder No Hx Alcohol Use No Hx Substance Use No Other Medical History Hx Blood Disorders No Hx Anemia No Hx Cancer No Hx Drug Resistant Organism No Wound/Pressure Injury Present on Arrival No /Admission Query Text:If yes, chart assessment in Shift/Clinical Findings Central Line/PICC/VAD Present on Arrival No /Admission Antibiotics within last 7 days? No Risk for Readmission Number of Risk Factors 1 At Risk for Readmission Patient is Not at Risk Patient is eligible for Call Back N Maternal Family History: Diabetes, Heart Disease Paternal Family History: Heart Disease, Hypertension - Social History Smoking Status: Current some day smoker Tobacco Use: Cigarettes Alcohol: None Drugs: None Allergies/Adverse Reactions: Allergy/AdvReac Type Severity Reaction Status Date / Time Penicillins [PCN] AdvReac Hives Verified 09/24/20 10:02 Review of Systems Constitutional:: Denies: Fever, Sweats, Weight loss, Appetite change, Chills Cardiovascular:: Denies: Chest pain, Palpitations, Dyspnea on exertion, PND Respiratory: Denies: Cough, Hemoptysis, Shortness of Breath, Wheezing Gastrointestinal:: Reports: Constipation, Hematochezia. Denies: Abdominal pain, Nausea, Vomiting, Diarrhea, Reflux Genitourinary: Denies: Dysuria, Hematuria, 15, Flank pain Musculoskeletal:: Reports: - Skin: Denies: Skin Changes Neurological:: Denies: Headache, Dizziness, Numbness, Tingling Psychiatric: Denies: Anxiety, Depression, Suicidal Ideations Vital Signs Temperature 98.7 F 09/27/20 15:40 Temperature Source Oral 09/27/20 15:40 Pulse Rate 86 09/27/20 15:40 Pulse Strength Normal (2+) 09/27/20 07:50 Respiratory Rate 18 09/27/20 15:40 Respiratory Effort Non-Labored 09/25/20 16:00 Respiratory Depth Normal 09/25/20 16:00 Respiratory Pattern Normal 09/25/20 16:00 Blood Pressure 136/63 H 09/27/20 15:40 Blood Pressure Mean 87 09/27/20 15:40 Blood Pressure Source Monitor 09/27/20 15:40 Blood Pressure Position Sitting 09/27/20 15:40 Blood Pressure Location Right Arm 09/27/20 15:40 Baseline BP 114/88 09/25/20 14:30 Pulse Ox 96 09/27/20 15:40 Oxygen Delivery Method Room Air 09/27/20 15:40 Oxygen Flow Rate (L/min) 2 09/25/20 14:00 - Physical Exam General: Alert, Oriented x3, No apparent distress HEENT: Atraumatic, Normocephalic Oropharynx:: Clear. Negative for: Ulcerated lesions, White exudate Neck:: Supple Cardiac:: Regular rate, Regular rhythm, Normal S1, Normal S2 Lungs: Clear to auscultation, Normal air movement Abdomen:: Bowel sounds x 4, Soft, - - a bit distended, ostomy LLQ stoma pink Extremities:: Edema - Bilateral lower extremities non pitting Skin:: Negative for: Petechiae, Ecchymosis Psychiatric:: Appropriate affect, - - Tearful during much of the conversation Laboratory Data: Microbiology 09/25/20 08:00 SARS-CoV-2 Antigen (Rapid) - Final Mucosa - Nose Laboratory Tests 09/27/20 09/27/20 09/27/20 Range/Units 06:20 06:20 06:20 WBC 12.1 H (4.4-11.0) K/mm3 RBC 3.14 L (4.2-5.4) M/mm3 Hgb 9.3 L (12.0-15.0) g/dL Hct 29.2 L (37-47) % MCV 93.0 (81-99) fL MCH 29.6 (27.0-32.0) pg MCHC 31.8 L (32-36) g/dL RDW Std Deviation 46.0 H (35.1-43.9) fl RDW Coeff of Dion 13.6 (11.6-14.6) % Plt Count 373 (150-450) K/mm3 MPV 8.8 (6.2-12.0) fl Immature Gran % (Auto) 0.500 (0.0-0.9) % Neut % (Auto) 74.4 H (47-70) % Lymph % (Auto) 14.7 L (19-41) % [place] % (Auto) 10.1 H (0-10) % Eos % (Auto) 0.2 (0-5) % Baso % (Auto) 0.1 (0-1) % Absolute Neuts (auto) 9.0 H (2.0-7.7) X10^3/uL Absolute Lymphs (auto) 1.77 (0.83-4.51) X10^3/uL Nucleated RBC % 0 (0-5) % Sodium 140 (136-145) mmol/L Potassium 3.0 L (3.5-5.1) mmol/L Chloride 107 (98-107) mmol/L Carbon Dioxide 27.0 (21.0-32.0) mmol/L Anion Gap 6 (5-15) BUN 9 (7-18) mg/dL Creatinine 0.46 L (0.55-1.02) mg/dL Estim Creat Clear Calc 120.23 ml/min Est GFR (MDRD) Af Amer 176 (>60) mL/min Est GFR (MDRD) Non-Af 145 (>60) mL/min BUN/Creatinine Ratio 19.4 (10-20) RATIO Glucose 102 (74-106) mg/dL Calcium 7.9 L (8.5-10.1) mg/dL Phosphorus 1.6 L (2.5-4.9) mg/dL Magnesium 2.0 (1.6-2.6) mg/dL Total Bilirubin 0.30 (0.20-1.00) mg/dL AST 16 (15-37) U/L ALT 13 (13-56) U/L Alkaline Phosphatase 80 (45-117) U/L Total Protein 5.7 L (6.4-8.2) g/dL Albumin 2.3 L (3.2-5.0) g/dL Globulin 3.4 (2.2-4.2) g/dL Albumin/Globulin Ratio 0.7 L (0.9-2.4) RATIO Diagnostic Data: Diagnostic Data Abdomen/Pelvis CT 09/24/20 10:30 IMPRESSION: Acute sigmoid diverticulitis with contained perforation. No focal fluid collection. Electronically Signed: Diego Valdes MD at 11:25 EDT Tel , Service support , KUB X-Ray 09/25/20 05:11 IMPRESSION: No acute disease perceived. at 0623 Reported and signed by: Rancho Grider MD Electronically Signed: Rancho Grider MD at 6:22 EDT Tel , Service support , Assessment and Plan 1. Suspected malignancy involving sigmoid colon/rectum- Based on report of sigmoid colectomy with end ostomy report from 09/25/2020?a verbal from pathology indicated a frozen section of tissue was positive for malignancy. Final pathology is still pending. Recommend awaiting path and molecular biomarkers and obtain PET/CT for formal staging in the outpatient setting. Patient is tearful during much of the interview but is adamant she is disinterested in any services that oncology can provide. We discussed the natural progression of the disease-if determined cancer. Recommend follow-up in the outpatient setting with [facility], Dr. Sanchez upon discharge. However if she declines oncology follow-up, I recommend hospice care if appropriate based on final path findings. Cheyanne Bernstein, MSN, TALENT CONSULTANT, AOCNP Medications: Prescriptions This Visit Medication Instructions Recorded NK 09/24/20 Medications Added to Medication List This Visit Category Date Time Status Potassium Chloride Oral Tablet [K-Dur] Med 09/27/20 10:25 Active 40 meq PO DAILYCM Primary Care Provider: Dr. Lnyda Palma MD Referring Provider: - Problem List (1) Suspected malignant neoplasm Status: Acute
--- NOTE | 2020-09-27 18:46 | PN_ITS ---
Patient Problems: Active and Suspected Problems Perforation of sigmoid colon due to diverticulitis (Acute) Cancer of sigmoid colon metastatic to intra-abdominal lymph node (Acute) Suspected malignant neoplasm (Acute) Reason for Visit: Follow-up for sigmoid colon mass status post colostomy Objective: Heart rate is normal. blood pressure is good Physical exam General: Alert, Oriented x3, Cooperative HEENT: Atraumatic, PERRLA, EOMI, Normocephalic Oral: No Gingival or Mucosal Lesions/ Ulcerations Neck: Supple, No JVD, Negative Carotid Bruits Lungs: Air entry diminished in bilateral lung bases. No crepitation/rhonchi Cardiovascular: Regular rate, Regular Rhythm, Normal S1, Normal S2, No murmurs Abdomen: Surgical dressing is dry. Left side colostomy with JT drain. Colostomy is empty, nonfunctional. bowel sounds absent. No significant tenderness. : No renal angle tenderness. No suprapubic tenderness. Extremities: No edema, Capillary Refill Less than 3 Seconds Skin: No rashes, No breakdown Musculoskeletal: No Tenderness to Palpation of Joints or Extremities Neurological: Cranial nerves II-XII grossly intact, Deep Tendon Reflexes 2+/4 and Symmetrical, Neuro grossly intact Psych/Mental Status: Normal Affect, Appropriate. Vitals/I&O's: Vital Signs Temp Pulse Resp BP Pulse Ox 98.7 F 86 18 136/63 H 96 09/27/20 15:40 09/27/20 15:40 09/27/20 15:40 09/27/20 15:40 09/27/20 15:40 Oxygen Flow Rate (L/min) 2 Oxygen Delivery Method Room Air Weight: 138 lb 14.259 oz Body Mass Index (BMI) 19.7 Intake and Output for Last 24 Hours 09/25/20 09/26/20 09/27/20 23:59 23:59 23:59 Intake Total 4818.33 / 4818.33 2643.75 / 2643.75 3296.25 / 3296.25 Output Total 1065 / 1065 870 / 870 30 / 30 Balance 3753.33 / 3753.33 1773.75 / 1773.75 3266.25 / 3266.25 Microbiology Past 72 Hours 09/25/20 08:00 Mucosa - Nose SARS-CoV-2 Antigen (Rapid) - Final Laboratory Results 09/27/20 06:20: WBC 12.1 H, RBC 3.14 L, Hgb 9.3 L, Hct 29.2 L, MCV 93.0, MCH 29.6, MCHC 31.8 L, RDW Std Deviation 46.0 H, RDW Coeff of Dion 13.6, Plt Count 373, MPV 8.8, Immature Gran % (Auto) 0.500, Neut % (Auto) 74.4 H, Lymph % (Auto) 14.7 L, [place] % (Auto) 10.1 H, Eos % (Auto) 0.2, Baso % (Auto) 0.1, Absolute Neuts (auto) 9.0 H, Absolute Lymphs (auto) 1.77, Nucleated RBC % 0 09/27/20 06:20: Sodium 140, Potassium 3.0 L, Chloride 107, Carbon Dioxide 27.0, Anion Gap 6, BUN 9, Creatinine 0.46 L, Estim Creat Clear Calc 120.23, Est GFR (MDRD) Af Amer 176, Est GFR (MDRD) Non-Af 145, BUN/Creatinine Ratio 19.4, Glucose 102, Calcium 7.9 L, Magnesium 2.0, Total Bilirubin 0.30, AST 16, ALT 13, Alkaline Phosphatase 80, Total Protein 5.7 L, Albumin 2.3 L, Globulin 3.4, Albumin/Globulin Ratio 0.7 L 09/27/20 06:20: Phosphorus 1.6 L Current Medications Acetaminophen (Acetaminophen 325 Mg Tablet) 650 mg PO Q6H PRN PRN PRN Reason: Pain Score 1-10/Temp > 100.7 F Last Admin: 09/24/20 14:51 Dose: 650 mg Documented by: Enoxaparin Sodium (Enoxaparin 40 Mg/0.4 Ml Syringe) 40 mg SC DAILY [facility] Last Admin: 09/27/20 09:56 Dose: 40 mg Documented by: Hydromorphone HCl (Hydromorphone 0.5 Mg/0.5 Ml Syringe) 0.5 - 1 mg IV Q2H PRN PRN PRN Reason: PAIN 1-10 Last Admin: 09/26/20 18:09 Dose: 1 mg Documented by: Ciprofloxacin (Cipro) 400 mg in 200 mls @ 200 mls/hr IV Q12 [facility] Last Infusion: 09/27/20 11:00 Dose: Infused Documented by: Metronidazole (Flagyl) 500 mg in 100 mls @ 100 mls/hr IV Q8 [facility] Last Infusion: 09/27/20 14:20 Dose: Infused Documented by: Sodium Chloride () 250 mls @ 15 mls/hr IV .[id number] PRN PRN Reason: Saline Flush Sodium Chloride () 250 mls @ 15 mls/hr IV .[id number] PRN PRN Reason: Additional IVPB Infusion Ondansetron HCl (Ondansetron 4 Mg/2 Ml Vial) 4 mg IV Q8H PRN PRN PRN Reason: NAUSEA/VOMITING Last Admin: 09/26/20 16:15 Dose: 4 mg Documented by: Oxycodone HCl (Oxycodone 5 Mg Tablet) 5 - 10 mg PO Q4H PRN PRN PRN Reason: Pain Score 1-10 Last Admin: 09/27/20 11:10 Dose: 10 mg Documented by: Potassium Chloride (Potassium Chloride Oral Tablet 20 Meq) 40 meq PO DAILYCM [facility] Last Admin: 09/27/20 11:10 Dose: 40 meq Documented by: Sodium Chloride (0.9% Saline Lock 10 Ml Syringe) 10 - 40 ml IV UD PRN PRN Reason: SALINE FLUSH Last Admin: 09/26/20 18:09 Dose: 10 ml Documented by: STROKE Vital Signs/Narrative: Vital Signs Temp Pulse Resp BP Pulse Ox 09/27/20 15:40 98.7 F 86 18 136/63 H 96 09/27/20 15:01 95 Medical Necessity - Tobacco Use Smoking Status: Current some day smoker Tobacco Use: Cigarettes Assessment/Plan All Active Problems Perforation of sigmoid colon due to diverticulitis (Acute) Cancer of sigmoid colon metastatic to intra-abdominal lymph node (Acute) Suspected malignant neoplasm (Acute) 1. Severe sepsis secondary to perforated sigmoid colon cancer: Patient was taken to the surgery on 09/25 and had sigmoid colectomy with end colostomy, Bassem procedure. Discussed with surgeon Dr. Sanchez. There was purulent material consistent with perforated sigmoid he found hard mass admitted to the sacrum. Specimen was sent for biopsy. Continue IV Cipro and Flagyl. Patient heart rate and blood pressure maintained. No fever is 36 hours. Continue incentive spirometry. Intraoperative findings discussed with the patient and told her high probability of sigmoid colon cancer and will consult oncologist ONCE biopsy report is available. 09/27: Discussed with the oncologist, Dr. Sanchez. Seen by oncology PA. Frozen section positive of malignancy but detailed pathology report, molecular biology pending. Patient declined oncology follow-up as per the consult note. Oncology also offered hospice care. I also discussed the patient's surgical intraoperative findings and high possibility of sigmoid colon cancer to her sister present in the room. 2. Mild acute blood loss anemia from surgery: Patient hemoglobin dropped from 13.1-10.2/9.7. Did not need PRBC transfusion. H&H is stable. Mild hypokalemia and hypophosphatemia. Potassium and phosphorus replaced. 3. Patient does not regularly follow with PCP probably last seen about 4 years ago. Patient has social issues, no insurance. manager er and social services designee are working on 4. Mild protein calorie malnutrition. DVT: Lovenox Total time of the visit including total time spent in counseling or coordination of care, (more than 50% of the total time, spent in obtaining medical information from nurses and other ancillary care providers,explaining to the patient about labs, imaging, diagnosis and management), discussion of the intraoperative findings and diagnosis to the patient, review of labs and imaging is 30 minutes. Microbiology Past 72 Hours 09/25/20 08:00 Mucosa - Nose SARS-CoV-2 Antigen (Rapid) - Final Laboratory Results 09/27/20 06:20: WBC 12.1 H, RBC 3.14 L, Hgb 9.3 L, Hct 29.2 L, MCV 93.0, MCH 29.6, MCHC 31.8 L, RDW Std Deviation 46.0 H, RDW Coeff of Dion 13.6, Plt Count 373, MPV 8.8, Immature Gran % (Auto) 0.500, Neut % (Auto) 74.4 H, Lymph % (Auto) 14.7 L, [place] % (Auto) 10.1 H, Eos % (Auto) 0.2, Baso % (Auto) 0.1, Absolute Neuts (auto) 9.0 H, Absolute Lymphs (auto) 1.77, Nucleated RBC % 0 09/27/20 06:20: Sodium 140, Potassium 3.0 L, Chloride 107, Carbon Dioxide 27.0, Anion Gap 6, BUN 9, Creatinine 0.46 L, Estim Creat Clear Calc 120.23, Est GFR (MDRD) Af Amer 176, Est GFR (MDRD) Non-Af 145, BUN/Creatinine Ratio 19.4, Glucose 102, Calcium 7.9 L, Magnesium 2.0, Total Bilirubin 0.30, AST 16, ALT 13, Alkaline Phosphatase 80, Total Protein 5.7 L, Albumin 2.3 L, Globulin 3.4, Albumin/Globulin Ratio 0.7 L 09/27/20 06:20: Phosphorus 1.6 L Inpatient E&M: [id number] Subs Hosp L2
[2020-09-27 20:06] LABS: Platelet Count 385 K/mm3 (150-450); RET-HE 27.3 pg (30-35); Reticulocyte Count 0.89 % (0.5-1.5)
[2020-09-27 20:22] LABS: Ferritin 376 ng/mL (8-252); Iron 62 ug/dL (50-170); Iron Binding Capacity,Total 328 ug/dL (250-450); LDH 205 U/L (84-246); PERCENT IRON SATURATION 18.9 % (15.0-55.0)
[2020-09-27 20:42] LABS: Vitamin B12 1133 pg/mL (211-911)
[2020-09-28] VITALS (9 sets, daily range): BP systolic 123–138; BP diastolic 65–79; PULSE 79–115; RESP 16–18; TEMP 36.7–36.9; O2SAT 94–99
[2020-09-28] MEDS: metroNIDAZOLE 500 MG/100 ML BAG 100 MG IV ×3 (05:47→21:10)
[2020-09-28 06:26] LABS: Absolute Lymphocyte Count 1.72 X10^3/uL (0.83-4.51); Absolute Neutrophil Count 7.9 X10^3/uL (2.0-7.7); Basophil# 0.05 X10^3/uL; Basophil% 0.5 % (0-1); Eosinophil# 0.14 X10^3/uL; Eosinophils% 1.3 % (0-5); Hematocrit 32.6 % (37-47); Hemoglobin 10.5 g/dL (12.0-15.0); Lymphocyte # 1.72 X10^3/ul (0.83-4.51); Lymphocyte % 15.6 % (19-41); Mean Corp Hgb Conc 32.2 g/dL (32-36); Mean Corpuscular Hgb 29.7 pg (27.0-32.0); Mean Corpuscular Volume 92.4 fL (81-99); Mean Platelet Vol. 8.6 fl (6.2-12.0); Monocyte# 1.15 X10^3/uL; Monocyte% 10.4 % (0-10); NRBC Flagged by Analyzer 0 % (0-5); Neutrophil % 71.5 % (47-70); Platelet Count 454 K/mm3 (150-450); RBC Distribution Width CV 13.6 % (11.6-14.6); RBC Distribution Width SD 46.5 fl (35.1-43.9); Red Blood Count 3.53 M/mm3 (4.2-5.4)
[2020-09-28 06:59] LABS: Anion Gap 5 (5-15); BUN 5 mg/dL (7-18); BUN/Creat Ratio 11.7 RATIO (10-20); Calcium,Total 8.4 mg/dL (8.5-10.1); Chloride 104 mmol/L (98-107); Creatinine, Serum 0.43 mg/dL (0.55-1.02); EST Glomerular Filtration Rate 159 mL/min (>60); Est Glom Filt Rate - Afr Amer 192 mL/min (>60); Estimated Creatinine Clearance 128.62 ml/min; Glucose 115 mg/dL (74-106); Magnesium 1.9 mg/dL (1.6-2.6); Phosphorus 3.7 mg/dL (2.5-4.9); Potassium 3.6 mmol/L (3.5-5.1); Sodium Level 139 mmol/L (136-145)
[2020-09-28] MEDS: Ciprofloxacin 400 MG/200 ML BAG 200 MG IV ×2 (08:35→22:33)
[2020-09-28] MEDS: Enoxaparin 40 MG/0.4 ML Syringe SC (08:35)
[2020-09-28] MEDS: Potassium Chloride Oral Tablet 20 MEQ 40 MEQ PO (08:35)
[2020-09-28] MEDS: 0.9% Saline Lock 10 ML Syringe IV (08:36)
[2020-09-28] MEDS: oxyCODONE 5 MG Tablet PO ×2 (13:37→20:47)
--- NOTE | 2020-09-28 13:39 | CASEMGMT ---
Social Work SW met with pt per pt request to review HCPOA and Living Will. Documents completed earlier in stay, now pt with further questions and corrections. SW answered all questions concerning living will and HCPOA and assisted pt in completing new documents. Originals given to pt and copy placed in chart. Documents made a few days ago were discarded per pt request. Pt inquiring about DNR vs Full Code. SW explained and notified physician that pt would like to speak to him about code status. KHURRAM Murphy
--- NOTE | 2020-09-28 14:57 | PN.SURG_ITS ---
Patient Problems: Active and Suspected Problems Perforation of sigmoid colon due to diverticulitis (Acute) Cancer of sigmoid colon metastatic to intra-abdominal lymph node (Acute) Suspected malignant neoplasm (Acute) Subjective: Areas coming out of the stoma at this time. It looks pink and viable. Objective: Dressings are dry. - Physical Exam Vitals/I&O's: Vital Signs Temp Pulse Resp BP Pulse Ox 98.2 F 80 18 136/79 H 98 09/28/20 14:00 09/28/20 14:00 09/28/20 14:00 09/28/20 14:00 09/28/20 14:00 Oxygen Flow Rate (L/min) 2 Oxygen Delivery Method Room Air Weight: 128 lb 15.527 oz Body Mass Index (BMI) 19.7 Intake and Output for Last 24 Hours 09/26/20 09/27/20 09/28/20 23:59 23:59 23:59 Intake Total 2643.75 / 2643.75 3522.95 / 3522.95 1333.3 / 1333.3 Output Total 870 / 870 Balance 1773.75 / 1773.75 3492.95 / 3492.95 1313.3 / 1313.3 Laboratory Results 09/25/20 05:10: Crossmatch See Detail 09/27/20 06:20: Retic Count 0.89, Immature Retic Fraction 8.40, Retic Hgb Equivalent 27.3 L 09/27/20 06:20: Iron 62, TIBC 328, Iron Saturation 18.9, Ferritin 376 H, Lactate Dehydrogenase 205, Folate 6.00 09/27/20 19:46: Vitamin B12 1133 H 09/27/20 19:46: Haptoglobin Pending 09/28/20 06:04: WBC 11.0, RBC 3.53 L, Hgb 10.5 L, Hct 32.6 L, MCV 92.4, MCH 29.7, MCHC 32.2, RDW Std Deviation 46.5 H, RDW Coeff of Dion 13.6, Plt Count 454 H, MPV 8.6, Immature Gran % (Auto) 0.700, Neut % (Auto) 71.5 H, Lymph % (Auto) 15.6 L, [place] % (Auto) 10.4 H, Eos % (Auto) 1.3, Baso % (Auto) 0.5, Absolute Neuts (auto) 7.9 H, Absolute Lymphs (auto) 1.72, Nucleated RBC % 0 09/28/20 06:04: Sodium 139, Potassium 3.6, Chloride 104, Carbon Dioxide 30.0, Anion Gap 5, BUN 5 L, Creatinine 0.43 L, Estim Creat Clear Calc 128.62, Est GFR (MDRD) Af Amer 192, Est GFR (MDRD) Non-Af 159, BUN/Creatinine Ratio 11.7, Glucose 115 H, Calcium 8.4 L, Phosphorus 3.7, Magnesium 1.9 Current Medications Acetaminophen (Acetaminophen 325 Mg Tablet) 650 mg PO Q6H PRN PRN PRN Reason: Pain Score 1-10/Temp > 100.7 F Last Admin: 09/24/20 14:51 Dose: 650 mg Documented by: Enoxaparin Sodium (Enoxaparin 40 Mg/0.4 Ml Syringe) 40 mg SC DAILY [facility] Last Admin: 09/28/20 08:35 Dose: 40 mg Documented by: Hydromorphone HCl (Hydromorphone 0.5 Mg/0.5 Ml Syringe) 0.5 - 1 mg IV Q2H PRN PRN PRN Reason: PAIN 1-10 Last Admin: 09/26/20 18:09 Dose: 1 mg Documented by: Ciprofloxacin (Cipro) 400 mg in 200 mls @ 200 mls/hr IV Q12 [facility] Last Infusion: 09/28/20 09:35 Dose: Infused Documented by: Metronidazole (Flagyl) 500 mg in 100 mls @ 100 mls/hr IV Q8 [facility] Last Infusion: 09/28/20 14:30 Dose: Infused Documented by: Sodium Chloride () 250 mls @ 15 mls/hr IV .[id number] PRN PRN Reason: Saline Flush Sodium Chloride () 250 mls @ 15 mls/hr IV .[id number] PRN PRN Reason: Additional IVPB Infusion Ondansetron HCl (Ondansetron 4 Mg/2 Ml Vial) 4 mg IV Q8H PRN PRN PRN Reason: NAUSEA/VOMITING Last Admin: 09/26/20 16:15 Dose: 4 mg Documented by: Oxycodone HCl (Oxycodone 5 Mg Tablet) 5 - 10 mg PO Q4H PRN PRN PRN Reason: Pain Score 1-10 Last Admin: 09/28/20 13:37 Dose: 10 mg Documented by: Potassium Chloride (Potassium Chloride Oral Tablet 20 Meq) 40 meq PO DAILYCM [facility] Last Admin: 09/28/20 08:35 Dose: 40 meq Documented by: Sodium Chloride (0.9% Saline Lock 10 Ml Syringe) 10 - 40 ml IV UD PRN PRN Reason: SALINE FLUSH Last Admin: 09/28/20 08:36 Dose: 10 ml Documented by: Medical Necessity - Tobacco Use Smoking Status: Current some day smoker Tobacco Use: Cigarettes Assessment/Plan All Active Problems Perforation of sigmoid colon due to diverticulitis (Acute) Cancer of sigmoid colon metastatic to intra-abdominal lymph node (Acute) Suspected malignant neoplasm (Acute) Patient is not interested in any oncologic treatments at this time. I have told her that there are options available and that obtaining a PET scan and possibly going through treatments may offer her the ability to have a surgery by an oncologic surgeon at a tertiary referral center which could increase her longevity. Patient states emphatically that she is not interested in this at all. Patient is interested in hospice and palliative care and we will consult them in the next day or so.
--- NOTE | 2020-09-28 15:26 | CASEMGMT ---
Physician said patient is interested in Hospice. SW met with patient, introduced self and role at [facility]. SW confirmed she wanted to talk with Hospice. She wanted [facility] as her parents had them. SW told her SW will make the referral and someone from Hospice will call her to set up an appt. She asked if her son could be present as he is not one of her listed visitors. SW told her SW would have to ask the charge nurse. SW spoke with charge and she said patient's son can come in for the Hospice meeting. SW called Hospice regarding referral and also faxed information. SW told patient that Hospice will be calling her and her son can be present for the meeting. RN updated. Areli Junior DRIER TENDER THALIA
--- NOTE | 2020-09-28 17:25 | PCM.PN.HOSP ---
Patient Problems: Active and Suspected Problems Perforation of sigmoid colon due to diverticulitis (Acute) Cancer of sigmoid colon metastatic to intra-abdominal lymph node (Acute) Suspected malignant neoplasm (Acute) Vitals/I&O's: Vital Signs Temp Pulse Resp BP Pulse Ox 98.2 F 115 H 18 136/79 H 98 09/28/20 14:00 09/28/20 15:02 09/28/20 14:00 09/28/20 14:00 09/28/20 14:00 Oxygen Flow Rate (L/min) 2 Oxygen Delivery Method Room Air Weight: 128 lb 15.527 oz Body Mass Index (BMI) 19.7 Intake and Output for Last 24 Hours 09/26/20 09/27/20 09/28/20 23:59 23:59 23:59 Intake Total 2643.75 / 2643.75 3522.95 / 3522.95 1333.3 / 1333.3 Output Total 870 / 870 30 / 30 20 / 20 Balance 1773.75 / 1773.75 3492.95 / 3492.95 1313.3 / 1313.3 Laboratory Results 09/25/20 05:10: Crossmatch See Detail 09/27/20 06:20: Retic Count 0.89, Immature Retic Fraction 8.40, Retic Hgb Equivalent 27.3 L 09/27/20 06:20: Iron 62, TIBC 328, Iron Saturation 18.9, Ferritin 376 H, Lactate Dehydrogenase 205, Folate 6.00 09/27/20 19:46: Vitamin B12 1133 H 09/27/20 19:46: Haptoglobin Pending 09/28/20 06:04: WBC 11.0, RBC 3.53 L, Hgb 10.5 L, Hct 32.6 L, MCV 92.4, MCH 29.7, MCHC 32.2, RDW Std Deviation 46.5 H, RDW Coeff of Dion 13.6, Plt Count 454 H, MPV 8.6, Immature Gran % (Auto) 0.700, Neut % (Auto) 71.5 H, Lymph % (Auto) 15.6 L, [place] % (Auto) 10.4 H, Eos % (Auto) 1.3, Baso % (Auto) 0.5, Absolute Neuts (auto) 7.9 H, Absolute Lymphs (auto) 1.72, Nucleated RBC % 0 09/28/20 06:04: Sodium 139, Potassium 3.6, Chloride 104, Carbon Dioxide 30.0, Anion Gap 5, BUN 5 L, Creatinine 0.43 L, Estim Creat Clear Calc 128.62, Est GFR (MDRD) Af Amer 192, Est GFR (MDRD) Non-Af 159, BUN/Creatinine Ratio 11.7, Glucose 115 H, Calcium 8.4 L, Phosphorus 3.7, Magnesium 1.9 Current Medications Acetaminophen (Acetaminophen 325 Mg Tablet) 650 mg PO Q6H PRN PRN PRN Reason: Pain Score 1-10/Temp > 100.7 F Last Admin: 09/24/20 14:51 Dose: 650 mg Documented by: Enoxaparin Sodium (Enoxaparin 40 Mg/0.4 Ml Syringe) 40 mg SC DAILY [facility] Last Admin: 09/28/20 08:35 Dose: 40 mg Documented by: Hydromorphone HCl (Hydromorphone 0.5 Mg/0.5 Ml Syringe) 0.5 - 1 mg IV Q2H PRN PRN PRN Reason: PAIN 1-10 Last Admin: 09/26/20 18:09 Dose: 1 mg Documented by: Ciprofloxacin (Cipro) 400 mg in 200 mls @ 200 mls/hr IV Q12 [facility] Last Infusion: 09/28/20 09:35 Dose: Infused Documented by: Metronidazole (Flagyl) 500 mg in 100 mls @ 100 mls/hr IV Q8 [facility] Last Infusion: 09/28/20 14:30 Dose: Infused Documented by: Sodium Chloride () 250 mls @ 15 mls/hr IV .[id number] PRN PRN Reason: Saline Flush Sodium Chloride () 250 mls @ 15 mls/hr IV .[id number] PRN PRN Reason: Additional IVPB Infusion Ondansetron HCl (Ondansetron 4 Mg/2 Ml Vial) 4 mg IV Q8H PRN PRN PRN Reason: NAUSEA/VOMITING Last Admin: 09/26/20 16:15 Dose: 4 mg Documented by: Oxycodone HCl (Oxycodone 5 Mg Tablet) 5 - 10 mg PO Q4H PRN PRN PRN Reason: Pain Score 1-10 Last Admin: 09/28/20 13:37 Dose: 10 mg Documented by: Potassium Chloride (Potassium Chloride Oral Tablet 20 Meq) 40 meq PO DAILYCM [facility] Last Admin: 09/28/20 08:35 Dose: 40 meq Documented by: Sodium Chloride (0.9% Saline Lock 10 Ml Syringe) 10 - 40 ml IV UD PRN PRN Reason: SALINE FLUSH Last Admin: 09/28/20 08:36 Dose: 10 ml Documented by: STROKE Vital Signs/Narrative: Vital Signs Temp Pulse Resp BP Pulse Ox 09/28/20 15:02 115 H 09/28/20 14:00 98.2 F 80 18 136/79 H 98 Medical Necessity - Tobacco Use Smoking Status: Current some day smoker Tobacco Use: Cigarettes Assessment/Plan All Active Problems Perforation of sigmoid colon due to diverticulitis (Acute) Cancer of sigmoid colon metastatic to intra-abdominal lymph node (Acute) Suspected malignant neoplasm (Acute) 1. Severe sepsis secondary to perforated sigmoid colon cancer: Patient was taken to the surgery on 09/25 and had sigmoid colectomy with end colostomy, Bassem procedure. Discussed with surgeon Dr. Sanchez. There was purulent material consistent with perforated sigmoid he found hard mass admitted to the sacrum. Specimen was sent for biopsy. Continue IV Cipro and Flagyl. Patient heart rate and blood pressure maintained. No fever is 36 hours. Continue incentive spirometry. Intraoperative findings discussed with the patient and told her high probability of sigmoid colon cancer and will consult oncologist ONCE biopsy report is available. 09/27: Discussed with the oncologist, Dr. Sanchez. Seen by oncology PA. Frozen section positive of malignancy but detailed pathology report, molecular biology pending. Patient declined oncology follow-up as per the consult note. Oncology also offered hospice care. I also discussed the patient's surgical intraoperative findings and high possibility of sigmoid colon cancer to her sister present in the room. 09/28: Patient not interested in further work-up for staging of sigmoid colon cancer like PET scan, oncology follow-up or chemotherapy. She understand clearly the risk but want to proceed with palliative care. This was further affirmed same by surgeon and oncologist. Consult palliative. Colostomy started working with serous drainage and passing flatus. Diet advanced to soft diet. 2. Mild acute blood loss anemia from surgery: Patient hemoglobin dropped from 13.1-10.2/9.7. Did not need PRBC transfusion. H&H is stable. B12 high 1133. Serum iron profile and ferritin suggestive of anemia of chronic disease. LDH and folate normal. Mild hypokalemia and hypophosphatemia. Potassium and phosphorus replaced. 3. Patient does not regularly follow with PCP probably last seen about 4 years ago. Patient has social issues, no insurance. wellness manager and social media marketing manager are working on it 4. Mild protein calorie malnutrition. DVT: Lovenox Total time of the visit including total time spent in counseling or coordination of care, (more than 50% of the total time, spent in obtaining medical information from nurses and other ancillary care providers,explaining to the patient about labs, imaging, diagnosis and management), discussion of the intraoperative findings and diagnosis to the patient, review of labs and imaging is 30 minutes. Laboratory Results 09/25/20 05:10: Crossmatch See Detail 09/27/20 06:20: Retic Count 0.89, Immature Retic Fraction 8.40, Retic Hgb Equivalent 27.3 L 09/27/20 06:20: Iron 62, TIBC 328, Iron Saturation 18.9, Ferritin 376 H, Lactate Dehydrogenase 205, Folate 6.00 09/27/20 19:46: Vitamin B12 1133 H 09/27/20 19:46: Haptoglobin Pending 09/28/20 06:04: WBC 11.0, RBC 3.53 L, Hgb 10.5 L, Hct 32.6 L, MCV 92.4, MCH 29.7, MCHC 32.2, RDW Std Deviation 46.5 H, RDW Coeff of Dion 13.6, Plt Count 454 H, MPV 8.6, Immature Gran % (Auto) 0.700, Neut % (Auto) 71.5 H, Lymph % (Auto) 15.6 L, [place] % (Auto) 10.4 H, Eos % (Auto) 1.3, Baso % (Auto) 0.5, Absolute Neuts (auto) 7.9 H, Absolute Lymphs (auto) 1.72, Nucleated RBC % 0 09/28/20 06:04: Sodium 139, Potassium 3.6, Chloride 104, Carbon Dioxide 30.0, Anion Gap 5, BUN 5 L, Creatinine 0.43 L, Estim Creat Clear Calc 128.62, Est GFR (MDRD) Af Amer 192, Est GFR (MDRD) Non-Af 159, BUN/Creatinine Ratio 11.7, Glucose 115 H, Calcium 8.4 L, Phosphorus 3.7, Magnesium 1.9 Inpatient E&M: [id number] Subs Hosp L2
[2020-09-29 03:20] VITALS: BP 130/76; PULSE 82; RESP 18; TEMP 36.7; O2SAT 97
[2020-09-29] MEDS: metroNIDAZOLE 500 MG/100 ML BAG 100 MG IV ×3 (05:19→21:09)
[2020-09-29] MEDS: oxyCODONE 5 MG Tablet PO ×3 (05:27→21:17)
[2020-09-29 05:36] LABS: Absolute Lymphocyte Count 2.16 X10^3/uL (0.83-4.51); Absolute Neutrophil Count 7.7 X10^3/uL (2.0-7.7); Basophil# 0.03 X10^3/uL; Basophil% 0.3 % (0-1); Eosinophil# 0.26 X10^3/uL; Eosinophils% 2.3 % (0-5); Hematocrit 30.5 % (37-47); Hemoglobin 9.8 g/dL (12.0-15.0); Lymphocyte # 2.16 X10^3/ul (0.83-4.51); Mean Corp Hgb Conc 32.1 g/dL (32-36); Mean Corpuscular Hgb 29.5 pg (27.0-32.0); Mean Corpuscular Volume 91.9 fL (81-99); Mean Platelet Vol. 8.5 fl (6.2-12.0); Monocyte# 1.14 X10^3/uL; NRBC Flagged by Analyzer 0 % (0-5); Neutrophil # 7.68 X10^3/uL (2.7-7.7); Neutrophil % 67.5 % (47-70); Platelet Count 454 K/mm3 (150-450); RBC Distribution Width CV 13.4 % (11.6-14.6); RBC Distribution Width SD 44.9 fl (35.1-43.9); Red Blood Count 3.32 M/mm3 (4.2-5.4); White Blood Count 11.4 K/mm3 (4.4-11.0)
[2020-09-29 05:50] LABS: Anion Gap 3 (5-15); BUN 5 mg/dL (7-18); BUN/Creat Ratio 10.4 RATIO (10-20); Calcium,Total 8.6 mg/dL (8.5-10.1); Chloride 106 mmol/L (98-107); Creatinine, Serum 0.48 mg/dL (0.55-1.02); EST Glomerular Filtration Rate 140 mL/min (>60); Est Glom Filt Rate - Afr Amer 169 mL/min (>60); Estimated Creatinine Clearance 113.67 ml/min; Glucose 123 mg/dL (74-106); Potassium 3.9 mmol/L (3.5-5.1); Sodium Level 138 mmol/L (136-145)
--- NOTE | 2020-09-29 07:15 | CASEMGMT ---
SW received a voice mail from Sarahi at Hospice. She said she will be meeting with patient today (09-29-20) at 1330. Areli VÁSQUEZ
[2020-09-29] MEDS: Potassium Chloride Oral Tablet 20 MEQ 40 MEQ PO (08:28)
[2020-09-29 09:20] VITALS: BP 141/91; PULSE 95; RESP 18; TEMP 36.9; O2SAT 95
[2020-09-29] MEDS: Ciprofloxacin 400 MG/200 ML BAG 200 MG IV ×2 (09:59→22:35)
[2020-09-29] MEDS: Enoxaparin 40 MG/0.4 ML Syringe SC (10:00)
--- NOTE | 2020-09-29 10:15 | NURSING ---
This RN into room to give medications. Pt on phone but hung up to take medication. Pt became every emotional and expressing concern about being discharged, caring for ostomy, hospice, and being self pay. This RN spent roughly 45 minutes providing emotional support and explained that the wound RN and I would be assisting her with learning about her stoma and apparatus. Pt needing continuous redirection during encounter. Pt's sister came into room; pt now calm and verbalizing understanding. Spoke with Richa wound RN about pt concerns.
--- NOTE | 2020-09-29 11:13 | DCINST_ITS ---
- Discharge Diagnoses Current Active Problems: Current Active and Chronic Problems Perforation of sigmoid colon due to diverticulitis (Acute) Cancer of sigmoid colon metastatic to intra-abdominal lymph node (Acute) Suspected malignant neoplasm (Acute) You will use the following diet at home:: Regular Your food should be the consistency of: Regular Discharge Activity: May Not Drive Weight Bearing Status: Weight bearing as tolerated Call your doctor if you observe: Fever of 101 or Higher, Numbness or Tingling, Change in Color, Inability to urinate, Inability to have a bowel movement, Shortness of breath, Dizziness, Fainting spells, Swelling in the ankles, Chest pain, Prolonged hiccoughing, Increased palpitations (irregular heartbeat), Calf discomfort, Uncontrolled pain Additional Instructions: Follow-up with the palliative/hospice care. Allergies/Adverse Reactions: Allergies Penicillins [PCN] Adverse Reaction (Verified 09/24/20 10:02) Hives Medications to take at Discharge NK 09/24/20 Primary Care Physician: Lynda Palma MD [Primary Care Provider] - Please follow up with your Primary Care Physician in: In 2 weeks Test Results: Test results from this visit will be discussed in further detail at your follow- up appointment, if applicable.
--- NOTE | 2020-09-29 11:33 | DS.PCM_ITS ---
Discharge Date and Diagnosis - Problem List Patient Problems: Active and Suspected Problems Perforation of sigmoid colon due to diverticulitis (Acute) Cancer of sigmoid colon metastatic to intra-abdominal lymph node (Acute) Suspected malignant neoplasm (Acute) Date of Admission: 09/24/20 Date of Discharge: 09/29/20 - Primary Discharge Diagnosis Acute Problems: Active Problems Perforation of sigmoid colon due to diverticulitis (Acute) Cancer of sigmoid colon metastatic to intra-abdominal lymph node (Acute) Suspected malignant neoplasm (Acute) Hospital Course and Treatment Consultations 09/24/20 15:24 Consult: Portable Machine Cutter Routine Comment: Reason for Consult: pt requested 09/25/20 15:24 Consult: Onc/Wound/straw hat brim raiser operator Routine Comment: Reason for Consult:: new colostomy Summary of Care Provided: The patient is a 60 year old F [] Patient Problems: Active and Suspected Problems Perforation of sigmoid colon due to diverticulitis (Acute) Cancer of sigmoid colon metastatic to intra-abdominal lymph node (Acute) Suspected malignant neoplasm (Acute) - Physical Exam Vitals/I&O's: Vital Signs Temp Pulse Resp BP Pulse Ox 98.5 F 95 18 141/91 H 95 09/29/20 09:20 09/29/20 09:20 09/29/20 09:20 09/29/20 09:20 09/29/20 09:20 Oxygen Flow Rate (L/min) 2 Oxygen Delivery Method Room Air Weight: 128 lb 4.944 oz Body Mass Index (BMI) 19.7 Intake and Output for Last 24 Hours 09/27/20 09/28/20 09/29/20 23:59 23:59 23:59 Intake Total 3522.95 / 3522.95 2313.3 / 2313.3 540 / 540 Output Total 30 40 / 40 Balance 3492.95 / 3492.95 2273.3 / 2273.3 540 / 540 Laboratory Results 09/29/20 05:20: WBC 11.4 H, RBC 3.32 L, Hgb 9.8 L, Hct 30.5 L, MCV 91.9, MCH 29.5, MCHC 32.1, RDW Std Deviation 44.9 H, RDW Coeff of Dion 13.4, Plt Count 454 H, MPV 8.5, Immature Gran % (Auto) 0.900, Neut % (Auto) 67.5, Lymph % (Auto) 19.0, [place] % (Auto) 10.0, Eos % (Auto) 2.3, Baso % (Auto) 0.3, Absolute Neuts (auto) 7.7, Absolute Lymphs (auto) 2.16, Nucleated RBC % 0 09/29/20 05:20: Sodium 138, Potassium 3.9, Chloride 106, Carbon Dioxide 29.0, Anion Gap 3 L, BUN 5 L, Creatinine 0.48 L, Estim Creat Clear Calc 113.67, Est GFR (MDRD) Af Amer 169, Est GFR (MDRD) Non-Af 140, BUN/Creatinine Ratio 10.4, Glucose 123 H, Calcium 8.6 Current Medications Acetaminophen (Acetaminophen 325 Mg Tablet) 650 mg PO Q6H PRN PRN PRN Reason: Pain Score 1-10/Temp > 100.7 F Last Admin: 09/24/20 14:51 Dose: 650 mg Documented by: Enoxaparin Sodium (Enoxaparin 40 Mg/0.4 Ml Syringe) 40 mg SC DAILY [facility] Last Admin: 09/29/20 10:00 Dose: 40 mg Documented by: Hydromorphone HCl (Hydromorphone 0.5 Mg/0.5 Ml Syringe) 0.5 - 1 mg IV Q2H PRN PRN PRN Reason: PAIN 1-10 Last Admin: 09/26/20 18:09 Dose: 1 mg Documented by: Ciprofloxacin (Cipro) 400 mg in 200 mls @ 200 mls/hr IV Q12 [facility] Last Infusion: 09/29/20 11:00 Dose: Infused Documented by: Metronidazole (Flagyl) 500 mg in 100 mls @ 100 mls/hr IV Q8 [facility] Last Infusion: 09/29/20 07:08 Dose: Infused Documented by: Sodium Chloride () 250 mls @ 15 mls/hr IV .[id number] PRN PRN Reason: Saline Flush Sodium Chloride () 250 mls @ 15 mls/hr IV .[id number] PRN PRN Reason: Additional IVPB Infusion Ondansetron HCl (Ondansetron 4 Mg/2 Ml Vial) 4 mg IV Q8H PRN PRN PRN Reason: NAUSEA/VOMITING Last Admin: 09/26/20 16:15 Dose: 4 mg Documented by: Oxycodone HCl (Oxycodone 5 Mg Tablet) 5 - 10 mg PO Q4H PRN PRN PRN Reason: Pain Score 1-10 Last Admin: 09/29/20 05:27 Dose: 10 mg Documented by: Potassium Chloride (Potassium Chloride Oral Tablet 20 Meq) 40 meq PO DAILYCM [facility] Last Admin: 09/29/20 08:28 Dose: 40 meq Documented by: Sodium Chloride (0.9% Saline Lock 10 Ml Syringe) 10 - 40 ml IV UD PRN PRN Reason: SALINE FLUSH Last Admin: 09/28/20 08:36 Dose: 10 ml Documented by: Discharge Activity: May Not Drive Weight Bearing Status: Weight bearing as tolerated Call your doctor if you observe: Fever of 101 or Higher, Numbness or Tingling, Change in Color, Inability to urinate, Inability to have a bowel movement, Shortness of breath, Dizziness, Fainting spells, Swelling in the ankles, Chest pain, Prolonged hiccoughing, Increased palpitations (irregular heartbeat), Calf discomfort, Uncontrolled pain Home Medications: Medications to take at Discharge NK 09/24/20 Primary Care Physician: Lynda Palma MD [Primary Care Provider] - Please follow up with your Primary Care Physician in: In 2 weeks Medical Necessity - Tobacco Use Smoking Status: Current some day smoker Tobacco Use: Cigarettes
--- NOTE | 2020-09-29 11:48 | NURSING ---
In to do ostomy teaching again with patient. Sister was present in the room at the beginning, but had to get to work. Had spent approx 1 hour and 20 min in room doing teaching with patient and sister 2 days ago. Did have to keep refocusing patient on the teaching. patient wanted to talk about lots of other things. Was similar with teaching today, but patient seemed to pay more attention today. did look at stoma and incision. patient wanted to watch this nurse step by step how change the appliance again. removed the appliance. cleansed the peristomal skin with warm water. pat skin dry. measured the stoma with the pattern made 2 days ago. stoma size the same, so used that pattern to trace on the new flange to cut to size. flange cut. applied paste around the opening that was cut and placed flange to skin. applied snapped in place. reviewed and demonstrated again with patient how to empty the appliance, clean the end and roll and seal the velcro again. Spend approx 50 min with patient. no stool was present in bag. but there was some flatus. stoma is nice and pink and is well budded. teaching booklet and step by step instructions for changing the appliance was given to patient prior to surgery. pt states has taken the booklet home so she knows they will have it. MAXIMILIAN Barber gave patient more teaching material today as well. Pt was given prices for different places to order supplies from since patient does not have insurance. pt aware she will have to order supplies. pt does have 5 appliance in room to take home with her as well. Pt is scheduled to meet with Hospice today at 1330. If patient decides not to go with hospice, would recommend home health for a short time until patient feels confident changing the appliances. Pt aware she would have to pay for this out of pocket. Pt denies further questions or concerns at this time. patient states I feel better about this now. Pt very appreciative of care. Pt aware to call this nurse of any concerns arise after discharge.
[2020-09-29 12:36] LABS: Haptoglobin 431 mg/dL (37-355)
[2020-09-29] MEDS: 0.9% Saline Lock 10 ML Syringe IV ×2 (14:35→21:09)
--- NOTE | 2020-09-29 15:44 | CASEMGMT ---
CAT spoke with Sarahi from Hospice. Patient signed Hospice papers. She will be discharged home with Hospice tomorrow. Green sheet on chart. Areli VÁSQUEZ
[2020-09-29 15:45] VITALS: BP 143/76; PULSE 94; RESP 14; TEMP 36.9; O2SAT 98
--- NOTE | 2020-09-29 15:45 | PCM.PN.SRG ---
Patient Problems: Active and Suspected Problems Perforation of sigmoid colon due to diverticulitis (Acute) Cancer of sigmoid colon metastatic to intra-abdominal lymph node (Acute) Suspected malignant neoplasm (Acute) Subjective: Pain is improving. Not much significant stool coming out of the stoma yet there is some air coming out of it she is not nauseated minimal amount from JT Objective: Abdomen is soft appropriately tender stoma pink - Physical Exam Vitals/I&O's: Vital Signs Temp Pulse Resp BP Pulse Ox 98.5 F 95 18 141/91 H 95 09/29/20 09:20 09/29/20 09:20 09/29/20 09:20 09/29/20 09:20 09/29/20 09:20 Oxygen Flow Rate (L/min) 2 Oxygen Delivery Method Room Air Weight: 128 lb 4.944 oz Body Mass Index (BMI) 19.7 Intake and Output for Last 24 Hours 09/27/20 09/28/20 09/29/20 23:59 23:59 23:59 Intake Total 3522.95 / 3522.95 2313.3 / 2313.3 540 / 540 Output Total 30 / 30 40 / 40 Balance 3492.95 / 3492.95 2273.3 / 2273.3 540 / 540 Laboratory Results 09/27/20 19:46: Haptoglobin 431 H 09/29/20 05:20: WBC 11.4 H, RBC 3.32 L, Hgb 9.8 L, Hct 30.5 L, MCV 91.9, MCH 29.5, MCHC 32.1, RDW Std Deviation 44.9 H, RDW Coeff of Dion 13.4, Plt Count 454 H, MPV 8.5, Immature Gran % (Auto) 0.900, Neut % (Auto) 67.5, Lymph % (Auto) 19.0, [place] % (Auto) 10.0, Eos % (Auto) 2.3, Baso % (Auto) 0.3, Absolute Neuts (auto) 7.7, Absolute Lymphs (auto) 2.16, Nucleated RBC % 0 09/29/20 05:20: Sodium 138, Potassium 3.9, Chloride 106, Carbon Dioxide 29.0, Anion Gap 3 L, BUN 5 L, Creatinine 0.48 L, Estim Creat Clear Calc 113.67, Est GFR (MDRD) Af Amer 169, Est GFR (MDRD) Non-Af 140, BUN/Creatinine Ratio 10.4, Glucose 123 H, Calcium 8.6 Current Medications Acetaminophen (Acetaminophen 325 Mg Tablet) 650 mg PO Q6H PRN PRN PRN Reason: Pain Score 1-10/Temp > 100.7 F Last Admin: 09/24/20 14:51 Dose: 650 mg Documented by: Enoxaparin Sodium (Enoxaparin 40 Mg/0.4 Ml Syringe) 40 mg SC DAILY [facility] Last Admin: 09/29/20 10:00 Dose: 40 mg Documented by: Hydromorphone HCl (Hydromorphone 0.5 Mg/0.5 Ml Syringe) 0.5 - 1 mg IV Q2H PRN PRN PRN Reason: PAIN 1-10 Last Admin: 09/26/20 18:09 Dose: 1 mg Documented by: Ciprofloxacin (Cipro) 400 mg in 200 mls @ 200 mls/hr IV Q12 [facility] Last Infusion: 09/29/20 11:00 Dose: Infused Documented by: Metronidazole (Flagyl) 500 mg in 100 mls @ 100 mls/hr IV Q8 [facility] Last Admin: 09/29/20 14:35 Dose: 100 mls/hr Documented by: Sodium Chloride () 250 mls @ 15 mls/hr IV .[id number] PRN PRN Reason: Saline Flush Sodium Chloride () 250 mls @ 15 mls/hr IV .[id number] PRN PRN Reason: Additional IVPB Infusion Ondansetron HCl (Ondansetron 4 Mg/2 Ml Vial) 4 mg IV Q8H PRN PRN PRN Reason: NAUSEA/VOMITING Last Admin: 09/26/20 16:15 Dose: 4 mg Documented by: Oxycodone HCl (Oxycodone 5 Mg Tablet) 5 - 10 mg PO Q4H PRN PRN PRN Reason: Pain Score 1-10 Last Admin: 09/29/20 14:42 Dose: 10 mg Documented by: Potassium Chloride (Potassium Chloride Oral Tablet 20 Meq) 40 meq PO DAILYCM [facility] Last Admin: 09/29/20 08:28 Dose: 40 meq Documented by: Sodium Chloride (0.9% Saline Lock 10 Ml Syringe) 10 - 40 ml IV UD PRN PRN Reason: SALINE FLUSH Last Admin: 09/29/20 14:35 Dose: 10 ml Documented by: Medical Necessity - Tobacco Use Smoking Status: Current some day smoker Tobacco Use: Cigarettes Assessment/Plan All Active Problems Perforation of sigmoid colon due to diverticulitis (Acute) Cancer of sigmoid colon metastatic to intra-abdominal lymph node (Acute) Suspected malignant neoplasm (Acute) Hospice and palliative care here to see the patient. Hopefully tomorrow I will remove the JT possible discharge this weekend.
--- NOTE | 2020-09-29 15:57 | NURSING ---
VSA late d/t pt meeting with family and Hospice.
--- NOTE | 2020-09-29 16:03 | PN_ITS ---
Patient Problems: Active and Suspected Problems Perforation of sigmoid colon due to diverticulitis (Acute) Cancer of sigmoid colon metastatic to intra-abdominal lymph node (Acute) Suspected malignant neoplasm (Acute) Reason for Visit: Follow-up for abdominal surgery with colostomy and colon cancer Objective: Seen and examined. No fever or chills. No tachycardia. General: Alert, Oriented x3, Cooperative HEENT: Atraumatic, PERRLA, EOMI, Normocephalic Oral: No Gingival or Mucosal Lesions/ Ulcerations Neck: Supple, No JVD, Negative Carotid Bruits Lungs: Air entry diminished in bilateral lung bases. No crepitation/rhonchi Cardiovascular: Regular rate, Regular Rhythm, Normal S1, Normal S2, No murmurs Abdomen: Bowel sounds present. Surgical dressing is dry. Left side colostomy with JT drain. Colostomy functioning with serous fluid and gas in bag. : No renal angle tenderness. No suprapubic tenderness. Extremities: No edema, Capillary Refill Less than 3 Seconds Skin: No rashes, No breakdown Musculoskeletal: No Tenderness to Palpation of Joints or Extremities Neurological: Cranial nerves II-XII grossly intact, Deep Tendon Reflexes 2+/4 and Symmetrical, Neuro grossly intact Psych/Mental Status: Normal Affect, Appropriate. Vitals/I&O's: Vital Signs Temp Pulse Resp BP Pulse Ox 98.4 F 94 14 143/76 H 98 09/29/20 15:45 09/29/20 15:45 09/29/20 15:45 09/29/20 15:45 09/29/20 15:45 Oxygen Flow Rate (L/min) 2 Oxygen Delivery Method Room Air Weight: 128 lb 4.944 oz Body Mass Index (BMI) 19.7 Intake and Output for Last 24 Hours 09/27/20 09/28/20 09/29/20 23:59 23:59 23:59 Intake Total 3522.95 / 3522.95 2313.3 / 2313.3 540 / 540 Output Total 40 / 40 10 / 10 Balance 3492.95 / 3492.95 2273.3 / 2273.3 530 / 530 Laboratory Results 09/27/20 19:46: Haptoglobin 431 H 09/29/20 05:20: WBC 11.4 H, RBC 3.32 L, Hgb 9.8 L, Hct 30.5 L, MCV 91.9, MCH 29.5, MCHC 32.1, RDW Std Deviation 44.9 H, RDW Coeff of Dion 13.4, Plt Count 454 H, MPV 8.5, Immature Gran % (Auto) 0.900, Neut % (Auto) 67.5, Lymph % (Auto) 19.0, [place] % (Auto) 10.0, Eos % (Auto) 2.3, Baso % (Auto) 0.3, Absolute Neuts (auto) 7.7, Absolute Lymphs (auto) 2.16, Nucleated RBC % 0 09/29/20 05:20: Sodium 138, Potassium 3.9, Chloride 106, Carbon Dioxide 29.0, Anion Gap 3 L, BUN 5 L, Creatinine 0.48 L, Estim Creat Clear Calc 113.67, Est GFR (MDRD) Af Amer 169, Est GFR (MDRD) Non-Af 140, BUN/Creatinine Ratio 10.4, Glucose 123 H, Calcium 8.6 Current Medications Acetaminophen (Acetaminophen 325 Mg Tablet) 650 mg PO Q6H PRN PRN PRN Reason: Pain Score 1-10/Temp > 100.7 F Last Admin: 09/24/20 14:51 Dose: 650 mg Documented by: Enoxaparin Sodium (Enoxaparin 40 Mg/0.4 Ml Syringe) 40 mg SC DAILY [facility] Last Admin: 09/29/20 10:00 Dose: 40 mg Documented by: Hydromorphone HCl (Hydromorphone 0.5 Mg/0.5 Ml Syringe) 0.5 - 1 mg IV Q2H PRN PRN PRN Reason: PAIN 1-10 Last Admin: 09/26/20 18:09 Dose: 1 mg Documented by: Ciprofloxacin (Cipro) 400 mg in 200 mls @ 200 mls/hr IV Q12 [facility] Last Infusion: 09/29/20 11:00 Dose: Infused Documented by: Metronidazole (Flagyl) 500 mg in 100 mls @ 100 mls/hr IV Q8 [facility] Last Admin: 09/29/20 14:35 Dose: 100 mls/hr Documented by: Sodium Chloride () 250 mls @ 15 mls/hr IV .[id number] PRN PRN Reason: Saline Flush Sodium Chloride () 250 mls @ 15 mls/hr IV .[id number] PRN PRN Reason: Additional IVPB Infusion Ondansetron HCl (Ondansetron 4 Mg/2 Ml Vial) 4 mg IV Q8H PRN PRN PRN Reason: NAUSEA/VOMITING Last Admin: 09/26/20 16:15 Dose: 4 mg Documented by: Oxycodone HCl (Oxycodone 5 Mg Tablet) 5 - 10 mg PO Q4H PRN PRN PRN Reason: Pain Score 1-10 Last Admin: 09/29/20 14:42 Dose: 10 mg Documented by: Potassium Chloride (Potassium Chloride Oral Tablet 20 Meq) 40 meq PO DAILY[facility] Last Admin: 09/29/20 08:28 Dose: 40 meq Documented by: Sodium Chloride (0.9% Saline Lock 10 Ml Syringe) 10 - 40 ml IV UD PRN PRN Reason: SALINE FLUSH Last Admin: 09/29/20 14:35 Dose: 10 ml Documented by: STROKE Vital Signs/Narrative: Vital Signs Temp Pulse Resp BP Pulse Ox 09/29/20 15:45 98.4 F 94 14 143/76 H 98 Medical Necessity - Tobacco Use Smoking Status: Current some day smoker Tobacco Use: Cigarettes Assessment/Plan All Active Problems Perforation of sigmoid colon due to diverticulitis (Acute) Cancer of sigmoid colon metastatic to intra-abdominal lymph node (Acute) Suspected malignant neoplasm (Acute) 1. Severe sepsis secondary to perforated sigmoid colon cancer: Patient was taken to the surgery on 09/25 and had sigmoid colectomy with end colostomy, Bassem procedure. Discussed with surgeon Dr. Sanchez. There was purulent material consistent with perforated sigmoid he found hard mass admitted to the sacrum. Specimen was sent for biopsy. Continue IV Cipro and Flagyl. Patient heart rate and blood pressure maintained. No fever is 36 hours. Continue incentive spirometry. Intraoperative findings discussed with the patient and told her high probability of sigmoid colon cancer and will consult oncologist ONCE biopsy report is available. 09/27: Discussed with the oncologist, Dr. Sanchez. Seen by oncology PA. Frozen section positive of malignancy but detailed pathology report, molecular biology pending. Patient declined oncology follow-up as per the consult note. Oncology also offered hospice care. I also discussed the patient's surgical intraoperative findings and high possibility of sigmoid colon cancer to her sister present in the room. 09/28: Patient not interested in further work-up for staging of sigmoid colon cancer like PET scan, oncology follow-up or chemotherapy. She understand clearly the risk but want to proceed with palliative care. This was further affirmed same by surgeon and oncologist. Consult palliative. Colostomy started working with serous drainage and passing flatus. Diet advanced to soft diet. 09/29: Plan for JT drain removal tomorrow a.m. Possible discharge tomorrow. Patient is getting education and instructions for colostomy bag change and care. 2. Mild acute blood loss anemia from surgery: Patient hemoglobin dropped from 13.1-10.2/9.7. Did not need PRBC transfusion. H&H is stable. B12 high 1133. Serum iron profile and ferritin suggestive of anemia of chronic disease. LDH and folate normal. Mild hypokalemia and hypophosphatemia. Potassium and phosphorus replaced. 3. Patient does not regularly follow with PCP probably last seen about 4 years ago. Patient has social issues, no insurance. manager wireless and pediatric social worker are working on it 4. Mild protein calorie malnutrition. DVT: Lovenox Living will/advanced directive/end of life care: Patient does have living will and advanced directive. Her power of civil rights attorney for health is her son. After discussion of benefits/risks procedures involved with full code, DNR CC arrest and DNR CC, the patient opted for DNRCC and does not want to pursue any curative intent for colon cancer including aging work-up for cancer or chemotherapy but palliative care. Hospice care was called. DNRCC hospice care. Patient does not want artificial life support including intubation, tube feed, ventilator and/chest compression, central venous catheter, vasopressor and DC shock if needed Total time spent in [id number] encounter in discussion of advanced directive 16 minutes. Laboratory Results 09/27/20 19:46: Haptoglobin 431 H 09/29/20 05:20: WBC 11.4 H, RBC 3.32 L, Hgb 9.8 L, Hct 30.5 L, MCV 91.9, MCH 29.5, MCHC 32.1, RDW Std Deviation 44.9 H, RDW Coeff of Dion 13.4, Plt Count 454 H, MPV 8.5, Immature Gran % (Auto) 0.900, Neut % (Auto) 67.5, Lymph % (Auto) 19.0, [place] % (Auto) 10.0, Eos % (Auto) 2.3, Baso % (Auto) 0.3, Absolute Neuts (auto) 7.7, Absolute Lymphs (auto) 2.16, Nucleated RBC % 0 09/29/20 05:20: Sodium 138, Potassium 3.9, Chloride 106, Carbon Dioxide 29.0, Anion Gap 3 L, BUN 5 L, Creatinine 0.48 L, Estim Creat Clear Calc 113.67, Est GFR (MDRD) Af Amer 169, Est GFR (MDRD) Non-Af 140, BUN/Creatinine Ratio 10.4, Glucose 123 H, Calcium 8.6 Inpatient E&M: 56779 Subs Hosp L2 Procedures: 78555 Advncd Care Plan 30 Min
[2020-09-29 21:10] VITALS: BP 145/65; PULSE 83; RESP 14; TEMP 37.1; O2SAT 98
[2020-09-29 21:45] VITALS: BP 133/70; PULSE 90; RESP 20; TEMP 36.8; O2SAT 93
[2020-09-30 03:26] VITALS: BP 135/74; PULSE 89; RESP 16; TEMP 36.9; O2SAT 96
[2020-09-30] MEDS: 0.9% Saline Lock 10 ML Syringe IV ×3 (03:28→10:57)
[2020-09-30] MEDS: oxyCODONE 5 MG Tablet PO ×3 (03:28→17:33)
[2020-09-30] MEDS: metroNIDAZOLE 500 MG/100 ML BAG 100 MG IV ×3 (05:35→22:23)
[2020-09-30 07:32] VITALS: O2SAT 97
[2020-09-30] MEDS: Potassium Chloride Oral Tablet 20 MEQ 40 MEQ PO (08:19)
--- NOTE | 2020-09-30 08:34 | PN.SURG_ITS ---
Patient Problems: Active and Suspected Problems Perforation of sigmoid colon due to diverticulitis (Acute) Cancer of sigmoid colon metastatic to intra-abdominal lymph node (Acute) Suspected malignant neoplasm (Acute) Subjective: Pain has improved significantly. Unfortunately we really have not had any stool come out of that stoma we have had some air it is sweating however no real stool is coming out. Objective: Dressings are dry. JT drain was removed without difficulty. - Physical Exam Vitals/I&O's: Vital Signs Temp Pulse Resp BP Pulse Ox 98.5 F 89 16 135/74 H 96 09/30/20 03:26 09/30/20 03:26 09/30/20 03:26 09/30/20 03:26 09/30/20 03:26 Oxygen Flow Rate (L/min) 2 Oxygen Delivery Method Room Air Weight: 127 lb 6.835 oz Body Mass Index (BMI) 19.7 Intake and Output for Last 24 Hours 09/28/20 09/29/20 09/30/20 23:59 23:59 23:59 Intake Total 2313.3 / 2313.3 1719 600 / 600 Output Total 40 / 40 10 10 Balance 2273.3 / 2273.3 1699 / 1999 590 / 590 Laboratory Results 09/27/20 19:46: Haptoglobin 431 H Current Medications Acetaminophen (Acetaminophen 325 Mg Tablet) 650 mg PO Q6H PRN PRN PRN Reason: Pain Score 1-10/Temp > 100.7 F Last Admin: 09/24/20 14:51 Dose: 650 mg Documented by: Enoxaparin Sodium (Enoxaparin 40 Mg/0.4 Ml Syringe) 40 mg SC DAILY [facility] Last Admin: 09/29/20 10:00 Dose: 40 mg Documented by: Hydromorphone HCl (Hydromorphone 0.5 Mg/0.5 Ml Syringe) 0.5 - 1 mg IV Q2H PRN PRN PRN Reason: PAIN 1-10 Last Admin: 09/26/20 18:09 Dose: 1 mg Documented by: Ciprofloxacin (Cipro) 400 mg in 200 mls @ 200 mls/hr IV Q12 [facility] Last Infusion: 09/29/20 23:36 Dose: Infused Documented by: Metronidazole (Flagyl) 500 mg in 100 mls @ 100 mls/hr IV Q8 [facility] Last Infusion: 09/30/20 06:54 Dose: Infused Documented by: Sodium Chloride () 250 mls @ 15 mls/hr IV .[id number] PRN PRN Reason: Saline Flush Sodium Chloride () 250 mls @ 15 mls/hr IV .[id number] PRN PRN Reason: Additional IVPB Infusion Ondansetron HCl (Ondansetron 4 Mg/2 Ml Vial) 4 mg IV Q8H PRN PRN PRN Reason: NAUSEA/VOMITING Last Admin: 09/26/20 16:15 Dose: 4 mg Documented by: Oxycodone HCl (Oxycodone 5 Mg Tablet) 5 - 10 mg PO Q4H PRN PRN PRN Reason: Pain Score 1-10 Last Admin: 09/30/20 08:19 Dose: 10 mg Documented by: Potassium Chloride (Potassium Chloride Oral Tablet 20 Meq) 40 meq PO DAILYCM [facility] Last Admin: 09/30/20 08:19 Dose: 40 meq Documented by: Sodium Chloride (0.9% Saline Lock 10 Ml Syringe) 10 - 40 ml IV UD PRN PRN Reason: SALINE FLUSH Last Admin: 09/30/20 05:35 Dose: 10 ml Documented by: Medical Necessity - Tobacco Use Smoking Status: Current some day smoker Tobacco Use: Cigarettes Assessment/Plan All Active Problems Perforation of sigmoid colon due to diverticulitis (Acute) Cancer of sigmoid colon metastatic to intra-abdominal lymph node (Acute) Suspected malignant neoplasm (Acute) Still awaiting GI function from stoma. Until this happens will not be able to discharge.
[2020-09-30 10:20] VITALS: BP 118/72; PULSE 85; RESP 15; TEMP 36.7; O2SAT 93
[2020-09-30] MEDS: Ciprofloxacin 400 MG/200 ML BAG 200 MG IV ×2 (10:47→21:08)
[2020-09-30] MEDS: Enoxaparin 40 MG/0.4 ML Syringe SC (10:57)
--- NOTE | 2020-09-30 13:06 | PN_ITS ---
Patient Problems: Active and Suspected Problems Perforation of sigmoid colon due to diverticulitis (Acute) Cancer of sigmoid colon metastatic to intra-abdominal lymph node (Acute) Suspected malignant neoplasm (Acute) Reason for Visit: Follow-up for colon cancer status post colostomy Objective: There is some gas in colostomy bag and serous fluid but no stool. General: Alert, Oriented x3, Cooperative HEENT: Atraumatic, PERRLA, EOMI, Normocephalic Oral: No Gingival or Mucosal Lesions/ Ulcerations Neck: Supple, No JVD, Negative Carotid Bruits Lungs: Air entry diminished in bilateral lung bases. No crepitation/rhonchi Cardiovascular: Regular rate, Regular Rhythm, Normal S1, Normal S2, No murmurs Abdomen: Bowel sounds present. Surgical dressing is dry. JT drain removed. Colostomy with serous fluid and gas but no stool in bag. : No renal angle tenderness. No suprapubic tenderness. Extremities: No edema, Capillary Refill Less than 3 Seconds Skin: No rashes, No breakdown Musculoskeletal: No Tenderness to Palpation of Joints or Extremities Neurological: Cranial nerves II-XII grossly intact, Deep Tendon Reflexes 2+/4 and Symmetrical, Neuro grossly intact Psych/Mental Status: Normal Affect, Appropriate. Vitals/I&O's: Vital Signs Temp Pulse Resp BP Pulse Ox 98.1 F 85 15 118/72 93 09/30/20 10:20 09/30/20 10:20 09/30/20 10:20 09/30/20 10:20 09/30/20 10:20 Oxygen Flow Rate (L/min) 2 Oxygen Delivery Method Room Air Weight: 127 lb 6.835 oz Body Mass Index (BMI) 19.7 Intake and Output for Last 24 Hours 09/28/20 09/29/20 09/30/20 23:59 23:59 23:59 Intake Total 2313.3 / 2313.3 1719 600 / 600 Output Total 40 / 40 10 Balance 2273.3 / 2273.3 1699 590 / 590 Current Medications Acetaminophen (Acetaminophen 325 Mg Tablet) 650 mg PO Q6H PRN PRN PRN Reason: Pain Score 1-10/Temp > 100.7 F Last Admin: 09/24/20 14:51 Dose: 650 mg Documented by: Enoxaparin Sodium (Enoxaparin 40 Mg/0.4 Ml Syringe) 40 mg SC DAILY [facility] Last Admin: 09/30/20 10:57 Dose: 40 mg Documented by: Hydromorphone HCl (Hydromorphone 0.5 Mg/0.5 Ml Syringe) 0.5 - 1 mg IV Q2H PRN PRN PRN Reason: PAIN 1-10 Last Admin: 09/26/20 18:09 Dose: 1 mg Documented by: Ciprofloxacin (Cipro) 400 mg in 200 mls @ 200 mls/hr IV Q12 [facility] Last Admin: 09/30/20 10:47 Dose: 200 mls/hr Documented by: Metronidazole (Flagyl) 500 mg in 100 mls @ 100 mls/hr IV Q8 [facility] Last Infusion: 09/30/20 06:54 Dose: Infused Documented by: Sodium Chloride () 250 mls @ 15 mls/hr IV .[id number] PRN PRN Reason: Saline Flush Sodium Chloride () 250 mls @ 15 mls/hr IV .[id number] PRN PRN Reason: Additional IVPB Infusion Ondansetron HCl (Ondansetron 4 Mg/2 Ml Vial) 4 mg IV Q8H PRN PRN PRN Reason: NAUSEA/VOMITING Last Admin: 09/26/20 16:15 Dose: 4 mg Documented by: Oxycodone HCl (Oxycodone 5 Mg Tablet) 5 - 10 mg PO Q4H PRN PRN PRN Reason: Pain Score 1-10 Last Admin: 09/30/20 08:19 Dose: 10 mg Documented by: Potassium Chloride (Pot[facility]ide Oral Tablet 20 [facility] Last Admin: 09/30/20 08:19 Dose: 40 meq Documented by: Sodium Chloride (0.9% Saline Lock 10 Ml Syringe) 10 - 40 ml IV UD PRN PRN Reason: SALINE FLUSH Last Admin: 09/30/20 10:57 Dose: 10 ml Documented by: STROKE Vital Signs/Narrative: Vital Signs Temp Pulse Resp BP Pulse Ox 09/30/20 10:20 98.1 F 85 15 118/72 93 Medical Necessity - Tobacco Use Smoking Status: Current some day smoker Tobacco Use: Cigarettes Assessment/Plan All Active Problems Perforation of sigmoid colon due to diverticulitis (Acute) Cancer of sigmoid colon metastatic to intra-abdominal lymph node (Acute) Suspected malignant neoplasm (Acute) 1. Severe sepsis secondary to perforated sigmoid colon cancer: Patient was taken to the surgery on 09/25 and had sigmoid colectomy with end colostomy, Bassem procedure. Discussed with surgeon Dr. Sanchez. There was purulent material consistent with perforated sigmoid he found hard mass admitted to the sacrum. Specimen was sent for biopsy. Continue IV Cipro and Flagyl. Patient heart rate and blood pressure maintained. No fever is 36 hours. Continue incentive spirometry. Intraoperative findings discussed with the patient and told her high probability of sigmoid colon cancer and will consult oncologist ONCE biopsy report is available. 09/27: Discussed with the oncologist, Dr. Sanchez. Seen by oncology PA. Frozen section positive of malignancy but detailed pathology report, molecular biology pending. Patient declined oncology follow-up as per the consult note. Oncology also offered hospice care. I also discussed the patient's surgical intraoperative findings and high possibility of sigmoid colon cancer to her sister present in the room. 09/28: Patient not interested in further work-up for staging of sigmoid colon cancer like PET scan, oncology follow-up or chemotherapy. She understand clearly the risk but want to proceed with palliative care. This was further affirmed same by surgeon and oncologist. Consult palliative. Colostomy started working with serous drainage and passing flatus. Diet advanced to soft diet. 09/30: No stool output in colostomy bag. Surgeon note reviewed. No discharge until stool in bag about adequate bowel function. Patient is getting education and instructions for colostomy bag change and care. 2. Mild acute blood loss anemia from surgery: Patient hemoglobin dropped from 13.1-10.2/9.7. Did not need PRBC transfusion. H&H is stable. B12 high 1133. Serum iron profile and ferritin suggestive of anemia of chronic disease. LDH and folate normal. Mild hypokalemia and hypophosphatemia. Potassium and phosphorus replaced. 3. Patient does not regularly follow with PCP probably last seen about 4 years ago. Patient has social issues, no insurance. green house manager and social service liaison are working on it 4. Mild protein calorie malnutrition. DVT: Lovenox Living will/advanced directive/end of life care: Patient does have living will and advanced directive. Her power of prosecuting attorney for health is her son. After discussion of benefits/risks procedures involved with full code, DNR CC arrest and DNR CC, the patient opted for DNRCC and does not want to pursue any curative intent for colon cancer including aging work-up for cancer or chemotherapy but palliative care. Hospice care was called. DNRCC hospice care. Patient does not want artificial life support including intubation, tube feed, ventilator and/chest compression, central venous catheter, vasopressor and DC shock if needed Total time spent in [id number] encounter in discussion of advanced directive 16 minutes. Inpatient E&M: 68211 Subs Hosp L2
[2020-09-30 15:13] VITALS: BP 120/72; PULSE 78; RESP 15; TEMP 37; O2SAT 93
[2020-09-30 21:04] VITALS: BP 119/66; PULSE 85; RESP 16; TEMP 36.7; O2SAT 97
[2020-10-01] MEDS: oxyCODONE 5 MG Tablet PO ×2 (01:21→12:54)
[2020-10-01 02:49] VITALS: BP 130/79; PULSE 90; RESP 16; TEMP 36.8; O2SAT 94
[2020-10-01] MEDS: metroNIDAZOLE 500 MG/100 ML BAG 100 MG IV (05:19)
[2020-10-01 05:49] LABS: Absolute Lymphocyte Count 1.93 X10^3/uL (0.83-4.51); Basophil# 0.05 X10^3/uL; Basophil% 0.4 % (0-1); Eosinophil# 0.27 X10^3/uL; Eosinophils% 2.2 % (0-5); Hematocrit 33.5 % (37-47); Hemoglobin 10.5 g/dL (12.0-15.0); Lymphocyte # 1.93 X10^3/ul (0.83-4.51); Mean Corp Hgb Conc 31.3 g/dL (32-36); Mean Corpuscular Hgb 28.8 pg (27.0-32.0); Mean Corpuscular Volume 91.8 fL (81-99); Mean Platelet Vol. 8.5 fl (6.2-12.0); Monocyte% 13.3 % (0-10); NRBC Flagged by Analyzer 0 % (0-5); Neutrophil # 8.04 X10^3/uL (2.7-7.7); Neutrophil % 66.8 % (47-70); POSITIVE DIFFERENTIAL YES; Platelet Count 529 K/mm3 (150-450); RBC Distribution Width CV 13.6 % (11.6-14.6); RBC Distribution Width SD 45.7 fl (35.1-43.9); Red Blood Count 3.65 M/mm3 (4.2-5.4); White Blood Count 12.1 K/mm3 (4.4-11.0)
[2020-10-01 06:00] LABS: Differential Indicated SCAN CRITERIA MET
--- NOTE | 2020-10-01 08:26 | PCM.PN.SRG ---
Patient Problems: Active and Suspected Problems Perforation of sigmoid colon due to diverticulitis (Acute) Cancer of sigmoid colon metastatic to intra-abdominal lymph node (Acute) Suspected malignant neoplasm (Acute) Subjective: No nausea or vomiting air still coming out of stoma but no stool Objective: Dressings are dry stoma is pink areas in the stoma - Physical Exam Vitals/I&O's: Vital Signs Temp Pulse Resp BP Pulse Ox 98.2 F 90 16 130/79 H 94 10/01/20 02:49 10/01/20 02:49 10/01/20 02:49 10/01/20 02:49 10/01/20 02:49 Oxygen Flow Rate (L/min) 2 Oxygen Delivery Method Room Air Weight: 119 lb 14.903 oz Body Mass Index (BMI) 19.7 Intake and Output for Last 24 Hours 09/29/20 09/30/20 10/01/20 23:59 23:59 23:59 Intake Total 1719 2540 / 2540 100 / 100 Output Total 10 Balance 1699 / 1999 2530 / 2530 100 / 100 Laboratory Results 10/01/20 05:15: WBC 12.1 H, RBC 3.65 L, Hgb 10.5 L, Hct 33.5 L, MCV 91.8, MCH 28.8, MCHC 31.3 L, RDW Std Deviation 45.7 H, RDW Coeff of Dion 13.6, Plt Count 529 H, MPV 8.5, Immature Gran % (Auto) 1.300 H, Neut % (Auto) 66.8, Lymph % (Auto) 16.0 L, [place] % (Auto) 13.3 H, Eos % (Auto) 2.2, Baso % (Auto) 0.4, Absolute Neuts (auto) 8.0 H, Absolute Lymphs (auto) 1.93, Nucleated RBC % 0, Diff Path Review May foll Current Medications Acetaminophen (Acetaminophen 325 Mg Tablet) 650 mg PO Q6H PRN PRN PRN Reason: Pain Score 1-10/Temp > 100.7 F Last Admin: 09/24/20 14:51 Dose: 650 mg Documented by: Enoxaparin Sodium (Enoxaparin 40 Mg/0.4 Ml Syringe) 40 mg SC DAILY [facility] Last Admin: 09/30/20 10:57 Dose: 40 mg Documented by: Hydromorphone HCl (Hydromorphone 0.5 Mg/0.5 Ml Syringe) 0.5 - 1 mg IV Q2H PRN PRN PRN Reason: PAIN 1-10 Last Admin: 09/26/20 18:09 Dose: 1 mg Documented by: Ciprofloxacin (Cipro) 400 mg in 200 mls @ 200 mls/hr IV Q12 [facility] Last Infusion: 09/30/20 22:08 Dose: Infused Documented by: Metronidazole (Flagyl) 500 mg in 100 mls @ 100 mls/hr IV Q8 [facility] Last Infusion: 10/01/20 06:27 Dose: Infused Documented by: Sodium Chloride () 250 mls @ 15 mls/hr IV .[id number] PRN PRN Reason: Saline Flush Sodium Chloride () 250 mls @ 15 mls/hr IV .[id number] PRN PRN Reason: Additional IVPB Infusion Ondansetron HCl (Ondansetron 4 Mg/2 Ml Vial) 4 mg IV Q8H PRN PRN PRN Reason: NAUSEA/VOMITING Last Admin: 09/26/20 16:15 Dose: 4 mg Documented by: Oxycodone HCl (Oxycodone 5 Mg Tablet) 5 - 10 mg PO Q4H PRN PRN PRN Reason: Pain Score 1-10 Last Admin: 10/01/20 01:21 Dose: 10 mg Documented by: Potassium Chloride (Potassium Chloride Oral Tablet 20 Meq) 40 meq PO DAILYCM [facility] Last Admin: 09/30/20 08:19 Dose: 40 meq Documented by: Sodium Chloride (0.9% Saline Lock 10 Ml Syringe) 10 - 40 ml IV UD PRN PRN Reason: SALINE FLUSH Last Admin: 09/30/20 10:57 Dose: 10 ml Documented by: Medical Necessity - Tobacco Use Smoking Status: Current some day smoker Tobacco Use: Cigarettes Assessment/Plan All Active Problems Perforation of sigmoid colon due to diverticulitis (Acute) Cancer of sigmoid colon metastatic to intra-abdominal lymph node (Acute) Suspected malignant neoplasm (Acute) Still awaiting GI function from stoma. Until this happens will not be able to discharge.
[2020-10-01 09:00] VITALS: BP 121/71; PULSE 84; RESP 16; TEMP 36.6; O2SAT 93
[2020-10-01] MEDS: Ciprofloxacin 400 MG/200 ML BAG 200 MG IV (09:08)
[2020-10-01] MEDS: Enoxaparin 40 MG/0.4 ML Syringe SC (09:08)
[2020-10-01] MEDS: Potassium Chloride Oral Tablet 20 MEQ 40 MEQ PO (09:08)
[2020-10-01 09:19] LABS: Anion Gap 6 (5-15); BUN 7 mg/dL (7-18); Calcium,Total 8.7 mg/dL (8.5-10.1); Chloride 103 mmol/L (98-107); Creatinine, Serum 0.54 mg/dL (0.55-1.02); EST Glomerular Filtration Rate 123 mL/min (>60); Est Glom Filt Rate - Afr Amer 148 mL/min (>60); Estimated Creatinine Clearance 93.95 ml/min; Glucose 125 mg/dL (74-106); Potassium 3.9 mmol/L (3.5-5.1); Sodium Level 137 mmol/L (136-145)
--- NOTE | 2020-10-01 11:33 | DCINST_ITS ---
- Discharge Diagnoses Current Active Problems: Current Active and Chronic Problems Perforation of sigmoid colon due to diverticulitis (Acute) Cancer of sigmoid colon metastatic to intra-abdominal lymph node (Acute) Suspected malignant neoplasm (Acute) You will use the following diet at home:: Regular - No hard or chewy food for next 5 days. Discharge Activity: May Not Drive Weight Bearing Status: Weight bearing as tolerated Call your doctor if you observe: Fever of 101 or Higher, Numbness or Tingling, Change in Color, Inability to urinate, Inability to have a bowel movement, Shortness of breath, Dizziness, Fainting spells, Swelling in the ankles, Chest pain, Prolonged hiccoughing, Increased palpitations (irregular heartbeat), Calf discomfort, Uncontrolled pain Additional Instructions: Probiotic, lactobacillus [id number] 1 tablet twice daily for 5 days. Allergies/Adverse Reactions: Allergies Penicillins [PCN] Adverse Reaction (Verified 09/24/20 10:02) Hives Medications to take at Discharge Lactobacillus Acidophilus [Acidophilus] 1 each PO DAILY #30 tablet 10/01/20 Potassium Chloride Oral Tablet [K-Dur] 20 meq PO DAILY #5 tab 10/01/20 The following prescriptions were given: Lactobacillus Acidophilus [Acidophilus] 1 each PO DAILY #30 tablet Transmission Status: Pending to [facility] Potassium Chloride Oral Tablet [K-Dur] 20 meq PO DAILY #5 tab Transmission Status: [facility] Primary Care Physician: Lynda Palma MD [Primary Care Provider] - Please follow up with your Primary Care Physician in: In 2 weeks Test Results: Test results from this visit will be discussed in further detail at your follow- up appointment, if applicable. Please Follow Up With: Alfonzo Sanchez MD When: Follow-up in 1 week with Katt Marley for suture removal
--- NOTE | 2020-10-01 12:29 | PCM.PN.HOSP ---
Patient Problems: Active and Suspected Problems Perforation of sigmoid colon due to diverticulitis (Acute) Cancer of sigmoid colon metastatic to intra-abdominal lymph node (Acute) Suspected malignant neoplasm (Acute) Reason for Visit: Follow-up for colostomy Vitals/I&O's: Vital Signs Temp Pulse Resp BP Pulse Ox 97.8 F 84 16 121/71 H 93 10/01/20 09:00 10/01/20 09:00 10/01/20 09:00 10/01/20 09:00 10/01/20 09:00 Oxygen Flow Rate (L/min) 2 Oxygen Delivery Method Room Air Weight: 119 lb 14.903 oz Body Mass Index (BMI) 19.7 Intake and Output for Last 24 Hours 09/29/20 09/30/20 10/01/20 23:59 23:59 23:59 Intake Total 1719 2540 / 2540 300 / 300 Output Total 10 Balance 1699 / 1999 2530 / 2530 300 / 300 Laboratory Results 10/01/20 05:15: WBC 12.1 H, RBC 3.65 L, Hgb 10.5 L, Hct 33.5 L, MCV 91.8, MCH 28.8, MCHC 31.3 L, RDW Std Deviation 45.7 H, RDW Coeff of Dion 13.6, Plt Count 529 H, MPV 8.5, Immature Gran % (Auto) 1.300 H, Neut % (Auto) 66.8, Lymph % (Auto) 16.0 L, [place] % (Auto) 13.3 H, Eos % (Auto) 2.2, Baso % (Auto) 0.4, Absolute Neuts (auto) 8.0 H, Absolute Lymphs (auto) 1.93, Nucleated RBC % 0, Diff Path Review October10/01/20 05:15: Sodium 137, Potassium 3.9, Chloride 103, Carbon Dioxide 28.0, Anion Gap 6, BUN 7, Creatinine 0.54 L, Estim Creat Clear Calc 93.95, Est GFR (MDRD) Af Amer 148, Est GFR (MDRD) Non-Af 123, BUN/Creatinine Ratio 13.0, Glucose 125 H, Calcium 8.7 Current Medications Acetaminophen (Acetaminophen 325 Mg Tablet) 650 mg PO Q6H PRN PRN PRN Reason: Pain Score 1-10/Temp > 100.7 F Last Admin: 09/24/20 14:51 Dose: 650 mg Documented by: Enoxaparin Sodium (Enoxaparin 40 Mg/0.4 Ml Syringe) 40 mg SC DAILY [facility] Last Admin: 10/01/20 09:08 Dose: 40 mg Documented by: Hydromorphone HCl (Hydromorphone 0.5 Mg/0.5 Ml Syringe) 0.5 - 1 mg IV Q2H PRN PRN PRN Reason: PAIN 1-10 Last Admin: 09/26/20 18:09 Dose: 1 mg Documented by: Ciprofloxacin (Cipro) 400 mg in 200 mls @ 200 mls/hr IV Q12 [facility] Last Infusion: 10/01/20 10:22 Dose: Infused Documented by: Metronidazole (Flagyl) 500 mg in 100 mls @ 100 mls/hr IV Q8 [facility] Last Infusion: 10/01/20 06:27 Dose: Infused Documented by: Sodium Chloride () 250 mls @ 15 mls/hr IV .[id number] PRN PRN Reason: Saline Flush Sodium Chloride () 250 mls @ 15 mls/hr IV .[id number] PRN PRN Reason: Additional IVPB Infusion Ondansetron HCl (Ondansetron 4 Mg/2 Ml Vial) 4 mg IV Q8H PRN PRN PRN Reason: NAUSEA/VOMITING Last Admin: 09/26/20 16:15 Dose: 4 mg Documented by: Oxycodone HCl (Oxycodone 5 Mg Tablet) 5 - 10 mg PO Q4H PRN PRN PRN Reason: Pain Score 1-10 Last Admin: 10/01/20 01:21 Dose: 10 mg Documented by: Potassium Chloride ([facility] Ch[facility]ide [facility] Tablet 20 [facility]eq[facility] Last Admin: 10/01/20 09:08 Dose: 40 meq Documented by: Sodium Chloride (0.9% Saline Lock 10 Ml Syringe) 10 - 40 ml IV UD PRN PRN Reason: SALINE FLUSH Last Admin: 09/30/20 10:57 Dose: 10 ml Documented by: STROKE Vital Signs/Narrative: Vital Signs Temp Pulse Resp BP Pulse Ox 10/01/20 09:00 97.8 F 84 16 121/71 H 93 Medical Necessity - Tobacco Use Smoking Status: Current some day smoker Tobacco Use: Cigarettes Assessment/Plan All Active Problems Perforation of sigmoid colon due to diverticulitis (Acute) Cancer of sigmoid colon metastatic to intra-abdominal lymph node (Acute) Suspected malignant neoplasm (Acute)
--- NOTE | 2020-10-01 12:40 | DS.PCM_ITS ---
Discharge Date and Diagnosis - Problem List Patient Problems: Active and Suspected Problems Perforation of sigmoid colon due to diverticulitis (Acute) Cancer of sigmoid colon metastatic to intra-abdominal lymph node (Acute) Suspected malignant neoplasm (Acute) Date of Admission: 09/24/20 Date of Discharge: 10/01/20 - Primary Discharge Diagnosis Acute Problems: Active Problems Perforation of sigmoid colon due to sigmoid colon cancer Cancer of sigmoid colon metastatic to intra-abdominal lymph node (Acute) Hospital Course and Treatment Consultations 09/24/20 15:24 Consult: Charge Attendant Routine Comment: Reason for Consult: pt requested 09/25/20 15:24 Consult: Onc/Wound/broadcast transmitter operator Routine Comment: Reason for Consult:: new colostomy Summary of Care Provided: The patient is a 60 year old F who was admitted with complaint of abdominal pain, mainly over left lower quadrant, nausea for 4 days, initially thought to be diverticulitis but on laparotomy came out to be sigmoid colon cancer. 1. Severe sepsis secondary to perforated sigmoid colon cancer: Patient was taken to the surgery on 09/25 and had sigmoid colectomy with end colostomy, Bassem procedure. Discussed with surgeon Dr. Sanchez. There was purulent material consistent with perforated sigmoid he found hard mass admitted to the sacrum. Frozen section positive of malignancy but detailed pathology report, molecular biology pending. Patient was started on IV Cipro and Flagyl and completed 7 days therefore does not need any further antibiotic. Patient was seen by oncology service. Discussed with the oncologist, Dr. Sanchez. Patient declined oncology follow-up as per the consult note. Oncology also offered hospice care. I also discussed the patient's surgical intraoperative findings and high possibility of sigmoid colon cancer to her sister present in the room but still patient declined. Later on patient agreed for hospice care and has home hospice care set up. Patient has colostomy which is started making softer stool today. Patient wants to go home therefore discharged home with home hospice care. 2. Mild acute blood loss anemia from surgery: Patient hemoglobin dropped from 13.1-10.2/9.7. H&H remained stable. Did not require PRBC transfusion. H&H is stable. B12 high 1133. Serum iron profile and ferritin suggestive of anemia of chronic disease. LDH and folate normal. Mild hypokalemia and hypophosphatemia. Potassium and phosphorus replaced. 3. Patient does not regularly follow with PCP probably last seen about 4 years ago. Patient has social issues, no insurance. human resource manager and psychiatric social worker supervisor worked on it. 4. Mild protein calorie malnutrition. DVT: Lovenox DNR CC, home hospice care Living will/advanced directive/end of life care: Patient does have living will and advanced directive. Her power of quill buncher and sorter for health is her son. After discussion of benefits/risks procedures involved with full code, DNR CC arrest and DNR CC, the patient opted for DNRCC and does not want to pursue any curative intent for colon cancer including aging work-up for cancer or chemotherapy but palliative care. Hospice care was called. DNRCC hospice care. Patient does not want artificial life support including intubation, tube feed, ventilator and/chest compression, central venous catheter, vasopressor and DC shock if needed Discharge medication reconciliation done. Discharge follow-up instructions completed. Discharge process discussed with the patient and all questions were answered to patient's satisfaction. Total time spent, exact 35 minutes on discharge meds reconciliation, examination, coordination of care with nurses and ancillary staff, review of imaging and blood test and discussion with the patient on follow-up instructions Patient Problems: Active and Suspected Problems Perforation of sigmoid colon due to diverticulitis (Acute) Cancer of sigmoid colon metastatic to intra-abdominal lymph node (Acute) Suspected malignant neoplasm (Acute) Objective: Patient moved her bowel, slight brownish in color but no blood. Earlier patient had a gas. General: Alert, Oriented x3, Cooperative HEENT: Atraumatic, PERRLA, EOMI, Normocephalic Oral: No Gingival or Mucosal Lesions/ Ulcerations Neck: Supple, No JVD, Negative Carotid Bruits Lungs: Air entry diminished in bilateral lung bases. No crepitation/rhonchi Cardiovascular: Regular rate, Regular Rhythm, Normal S1, Normal S2, No murmurs Abdomen: Bowel sounds present. Surgical dressing is dry. Colostomy with serous fluid, soft formed stool : No renal angle tenderness. No suprapubic tenderness. Extremities: No edema, Capillary Refill Less than 3 Seconds Skin: No rashes, No breakdown Musculoskeletal: No Tenderness to Palpation of Joints or Extremities Neurological: Cranial nerves II-XII grossly intact, Deep Tendon Reflexes 2+/4 and Symmetrical, Neuro grossly intact Psych/Mental Status: Normal Affect, Appropriate. - Physical Exam Vitals/I&O's: Vital Signs Temp Pulse Resp BP Pulse Ox 97.8 F 84 16 121/71 H 93 10/01/20 09:00 10/01/20 09:00 10/01/20 09:00 10/01/20 09:00 10/01/20 09:00 Oxygen Flow Rate (L/min) 2 Oxygen Delivery Method Room Air Weight: 119 lb 14.903 oz Body Mass Index (BMI) 19.7 Intake and Output for Last 24 Hours 09/29/20 09/30/20 10/01/20 23:59 23:59 23:59 Intake Total 1719 2540 / 2540 300 / 300 Output Total 10 Balance 1699 2530 / 2530 300 / 300 Laboratory Results 10/01/20 05:15: WBC 12.1 H, RBC 3.65 L, Hgb 10.5 L, Hct 33.5 L, MCV 91.8, MCH 28.8, MCHC 31.3 L, RDW Std Deviation 45.7 H, RDW Coeff of Dion 13.6, Plt Count 529 H, MPV 8.5, Immature Gran % (Auto) 1.300 H, Neut % (Auto) 66.8, Lymph % (Auto) 16.0 L, Scott % (Auto) 13.3 H, Eos % (Auto) 2.2, Baso % (Auto) 0.4, Absolute Neuts (auto) 8.0 H, Absolute Lymphs (auto) 1.93, Nucleated RBC % 0, Diff Path Review October10/01/20 05:15: Sodium 137, Potassium 3.9, Chloride 103, Carbon Dioxide 28.0, Anion Gap 6, BUN 7, Creatinine 0.54 L, Estim Creat Clear Calc 93.95, Est GFR (MDRD) Af Amer 148, Est GFR (MDRD) Non-Af 123, BUN/Creatinine Ratio 13.0, Glucose 125 H, Calcium 8.7 Current Medications Acetaminophen (Acetaminophen 325 Mg Tablet) 650 mg PO Q6H PRN PRN PRN Reason: Pain Score 1-10/Temp > 100.7 F Last Admin: 09/24/20 14:51 Dose: 650 mg Documented by: Enoxaparin Sodium (Enoxaparin 40 Mg/0.4 Ml Syringe) 40 mg SC DAILY [facility] Last Admin: 10/01/20 09:08 Dose: 40 mg Documented by: Hydromorphone HCl (Hydromorphone 0.5 Mg/0.5 Ml Syringe) 0.5 - 1 mg IV Q2H PRN PRN PRN Reason: PAIN 1-10 Last Admin: 09/26/20 18:09 Dose: 1 mg Documented by: Ciprofloxacin (Cipro) 400 mg in 200 mls @ 200 mls/hr IV Q12 [facility] Last Infusion: 10/01/20 10:22 Dose: Infused Documented by: Metronidazole (Flagyl) 500 mg in 100 mls @ 100 mls/hr IV Q8 [facility] Last Infusion: 10/01/20 06:27 Dose: Infused Documented by: Sodium Chloride () 250 mls @ 15 mls/hr IV .[id number] PRN PRN Reason: Saline Flush Sodium Chloride () 250 mls @ 15 mls/hr IV .[id number] PRN PRN Reason: Additional IVPB Infusion Ondansetron HCl (Ondansetron 4 Mg/2 Ml Vial) 4 mg IV Q8H PRN PRN PRN Reason: NAUSEA/VOMITING Last Admin: 09/26/20 16:15 Dose: 4 mg Documented by: Oxycodone HCl (Oxycodone 5 Mg Tablet) 5 - 10 mg PO Q4H PRN PRN PRN Reason: Pain Score 1-10 Last Admin: 10/01/20 01:21 Dose: 10 mg Documented by: Potassium Chloride (Potassium Chloride Oral Tablet 20 Meq) 40 meq PO DAILYCM [facility]A Last Admin: 10/01/20 09:08 Dose: 40 meq Documented by: Sodium Chloride (0.9% Saline Lock 10 Ml Syringe) 10 - 40 ml IV UD PRN PRN Reason: SALINE FLUSH Last Admin: 09/30/20 10:57 Dose: 10 ml Documented by: Discharge Activity: May Not Drive Weight Bearing Status: Weight bearing as tolerated Call your doctor if you observe: Fever of 101 or Higher, Numbness or Tingling, Change in Color, Inability to urinate, Inability to have a bowel movement, Shortness of breath, Dizziness, Fainting spells, Swelling in the ankles, Chest pain, Prolonged hiccoughing, Increased palpitations (irregular heartbeat), Calf discomfort, Uncontrolled pain Home Medications: Medications to take at Discharge Lactobacillus Acidophilus [Acidophilus] 1 each PO DAILY #30 tablet 10/01/20 Potassium Chloride Oral Tablet [K-Dur] 20 meq PO DAILY #5 tab 10/01/20 Following Prescriptions Were Given to Patient: Lactobacillus Acidophilus [Acidophilus] 1 each PO DAILY #30 tablet Transmission Status: Pending to [id number] Potassium Chloride Oral Tablet [K-Dur] 20 meq PO DAILY #5 tab Transmission Status: Pending to [id number] Primary Care Physician: Lynda Palma MD [Primary Care Provider] - Please follow up with your Primary Care Physician in: In 2 weeks Please Follow Up With: Alfonzo Sanchez MD When: Follow-up in 1 week with Katt Marley for suture removal Medical Necessity - Tobacco Use Smoking Status: Current some day smoker Tobacco Use: Cigarettes Meaningful Use Info Meaningful Use Diagnoses (Choose all that apply): None applicable Inpatient E&M: 94519 Disch Hosp
[2020-10-01 14:35] VITALS: BP 130/82; PULSE 90; RESP 16; TEMP 36.3; O2SAT 100
[2020-10-02 11:52] LABS: Pathologist Review Reviewed
== END 2020-10-01 15:18 | disposition hospice, home (50) | DRG 854 ==
LOC: ED 11:31 → ICU 13:26 → PCU 09-26 14:34
PROVIDERS: Anesthesiology; Hospitalist; Surgery; Admitting Provider Family Medicine; Emergency Provider Emergency Medicine; PCP Family Medicine; Visit Provider Internal Medicine
PROC: 0DTN0ZZ Resection of Sigmoid Colon, Open Approach (ICD-10-PCS; CPT 44204; principal; 2020-09-25 10:05)
DX: A41.9 Sepsis, unspecified organism (principal); K57.20 Diverticulitis of large intestine with perforation and abscess without bleeding; C18.7 Malignant neoplasm of sigmoid colon; C77.2 Secondary and unspecified malignant neoplasm of intra-abdominal lymph nodes; E44.1 Mild protein-calorie malnutrition; Z68.1 Body mass index [BMI] 19.9 or less, adult; D62 Acute posthemorrhagic anemia; R65.20 Severe sepsis without septic shock; K64.4 Residual hemorrhoidal skin tags; F17.210 Nicotine dependence, cigarettes, uncomplicated; E83.39 Other disorders of phosphorus metabolism; E87.6 Hypokalemia; Z66 Do not resuscitate
CPT/HCPCS: 36415; 74018; 74176; 80048; 80053; 81001; 82607; 82728; 82746; 83010; 83540; 83550; 83605; 83615; 83690; 83735; 84100; 85014; 85018; 85025; 85045; 85610; 85730; 86850; 86900; 86901; 86920; 86922; 87426; 88305; 88309; 88331; 88332; 88341; 88342; 93005; 99251; 99285; 99406; J7030; J7040; J7050; J7120; A4216; C1760; G0463; J0744; J2405

== ENCOUNTER → 2020-11-16 10:55 | Outpatient (CLI) | payer SELFPAY ==
[2020-09-25 10:22] VITALS: BMI 19.7
[2020-11-16 11:07] LABS: Bacteria 0 SEEN /hpf (None Seen); Mucous, Urine 0 SEEN /hpf (<or=2+); Red Blood Cells-Urine 0 SEEN /hpf (0-5); Squamous Epithelial Cells - UA 0 SEEN /hpf (5-10); White Blood Cells 0 SEEN /hpf (0-5)
[2020-11-16 11:11] LABS: Glucose, Dipstick Normal (Normal); Ketone-Dipstick Negative (Negative); Leukocyte Esterase-Dipstick 25 /ul (Negative); Nitrite-Dipstick Positive (Negative); Occult Blood-Urine Negative /ul (Negative); Protein-Dipstick Negative (Negative); Urine Clarity Clear (Clear); Urine Urobilinogen 4 mg/dl (Normal)
[2020-11-16 11:12] LABS: Color, Urine Orange (Yellow); Urine Bilirubin Dipstick 3 mg/dL (Negative)
[2020-11-16 11:18] LABS: Anion Gap 5 (5-15); BUN 16 mg/dL (7-18); BUN/Creat Ratio 25.1 RATIO (10-20); Calcium,Total 9.3 mg/dL (8.5-10.1); Chloride 109 mmol/L (98-107); Creatinine, Serum 0.64 mg/dL (0.55-1.02); EST Glomerular Filtration Rate 101 mL/min (>60); Est Glom Filt Rate - Afr Amer 122 mL/min (>60); Glucose 96 mg/dL (74-106); Potassium 4.1 mmol/L (3.5-5.1); Sodium Level 140 mmol/L (136-145)
== END ==
PROVIDERS: PCP Family Medicine; Visit Provider Family Medicine Hospice and Palliative Medicine
DX: E87.6 Hypokalemia (principal); R30.0 Dysuria
CPT/HCPCS: 80048; 81001; 87086; 87088